=== PATIENT | female | born 1935 | race Caucasian/White ===

== ENCOUNTER 2018-03-25 03:48 | Inpatient (IN) | payer OTHER ==
[~2018-03-25] VITALS: Ht 160 cm; Wt 68.8 kg
[~2018-03-25 03:48] MED LIST: ASPI-435 PO; ATOR-24 PO; CLOP1TAB15 PO; GLC500 PO; KCLP20 PO; METO25TA3 PO; NITR0.4S UT; PANT40TA PO; TELM5TAB PO
--- NOTE | 2018-03-25 04:11 | EMERGENCY ROOM VISIT NOTE ---
History Report prepared by Jonas: Blake Myers Under the Supervision of: Dr. Bhumika Miner D.O. First contact with patient: 03:53 Chief Complaint: CARDIAC ASSESSMENT Stated Complaint: HEARTBURN History of Present Illness The patient is an 82 year old female who presents to the Emergency Room with complaints of now-resolved heartburn that the patient experienced all day yesterday. The patient states that she was experiencing heartburn yesterday and took "multiple Tums." The Tums did not relieve her symptoms. The patient then developed "tingling" and "numbness" in the left arm as well as a "heaviness" in her chest. She notes that her symptoms are now resolved and she has no burning at this time, and adds that the symptoms were improved with Nitroglycerin from EMS. The patient has a significant cardiac history and has had two prior myocardial infarctions. These episodes presented with left sided jaw pain. The patient denies any jaw pain recently. She has had several stents placed. The patient has also gone into cardiogenic shock and has had a failed coronary artery bypass surgery. She is on Plavix and Baby Aspirin as anticoagulation therapy. The patient brought documentation of a recent Nuclear Stress Test from August of this year. The report shows that the patient's EF was 55-60%. There was mild left atrial enlargement and mild regurgitation of the mitral valve. There were no wall motion abnormalities. Source of History: patient Onset: Yesterday Position: chest Quality: burning Timing: resolved Modifying Factors (Relieving): other (Nitro) Associated Symptoms: + numbness (Left Arm) Review of Systems See HPI for pertinent positives & negatives. A total of 10 systems reviewed and were otherwise negative. 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/P CABG x 3 Family History No pertinent family history Social History Smoking Status: Never Smoker Drug Use: none Marital Status: Housing Status: lives with significant other Occupation Status: retired Current/Historical Medications Scheduled Aspirin (Aspirin 81), 81 MG PO DAILY Atorvastatin (Lipitor), 80 MG PO DAILY Calcium Carbonate-Vitamin D (Calcium + D), 1 TAB PO DAILY Clobetasol Propionate (Clobetasol Propionate), 1 APPLN TOP DAILY Clopidogrel (Plavix), 75 MG PO DAILY Estradiol Vaginal (Estrace), 1 APPLN TOP 2XWK Isosorbide Mononitrate Ext Rel (Imdur Ext Rel), 30 MG PO QAM Levothyroxine Sodium (Levothyroxine Sodium), 50 MCG PO QAM Metformin HCl (Metformin HCl), 500 MG PO HS Pantoprazole (Protonix), 40 MG PO DAILY Potassium Chloride (K-Tab), 20 MEQ PO DAILY Telmisartan (Micardis), 20 MG PO DAILY Scheduled PRN Nitroglycerin (Nitrostat), 0.4 MG UT UD PRN for Chest Pain Allergies Coded Allergies: No Known Allergies (Unverified , 03/25/18) Physical Exam Vital Signs Date Time Temp Pulse Resp B/P (MAP) Pulse Ox O2 Delivery O2 Flow Rate FiO2 03/25/18 06:06 58 18 141/71 96 Room Air 03/25/18 05:31 57 18 149/71 96 Room Air 03/25/18 04:42 59 18 148/78 97 Room Air 03/25/18 03:55 97 Room Air 03/25/18 03:55 36.8 70 18 164/88 97 Room Air 03/25/18 03:55 67 03/25/18 03:55 97 Physical Exam HEENT: Head - normocephalic and atraumatic Pupils are equal, round, and reactive to light. Extraocular eye muscles are intact, and sclera are anicteric. Nose - moist nasal mucosa without discharge. Mouth - moist buccal mucosa. Oropharynx is nonerythematous and there is no tonsillar exudate or edema noted. Neck: Supple; no JVD, nuchal rigidity, cervical lymphadenopathy. Heart: Regular rate and rhythm. There is a normal S1 and S2 with no murmurs, clicks, or gallops appreciated. Lungs: Clear to auscultation bilaterally with no wheezes, rales, or rhonchi. Abdomen: Soft, completely nontender, nondistended, with good bowel sounds. There are no palpable pulsatile masses or hepatosplenomegaly. There is no guarding, rigidity, or rebound noted. Extremities: No evidence of cyanosis, clubbing, or edema. There are easily palpable peripheral pulses. Skin: warm and dry with good turgor and no rashes. Medical Decision & Procedures ER Provider Diagnostic Interpretation: Radiology results as stated below per my review: CHEST X-RAY: Cardiomegaly present. Sternotomy wires in place, no pleural effusion. Laboratory Results 03/25/18 03:45 Red Blood Count 4.03, Mean Corpuscular Volume 91.6, Mean Corpuscular Hemoglobin 30.0, Mean Corpuscular Hemoglobin Concent 32.8, Mean Platelet Volume 9.6, Neutrophils (%) (Auto) 63.1, Lymphocytes (%) (Auto) 22.6, Monocytes (%) (Auto) 11.0, Eosinophils (%) (Auto) 2.5, Basophils (%) (Auto) 0.7, Neutrophils # (Auto ) 5.52, Lymphocytes # (Auto) 1.98, Monocytes # (Auto) 0.96, Eosinophils # (Auto ) 0.22, Basophils # (Auto) 0.06 03/25/18 03:45 Test 03/25/18 03:45 White Blood Count 8.75 K/uL (4.8-10.8) Red Blood Count 4.03 M/uL (4.2-5.4) Hemoglobin 12.1 g/dL (12.0-16.0) Hematocrit 36.9 % (37-47) Mean Corpuscular Volume 91.6 fL (80-100) Mean Corpuscular Hemoglobin 30.0 pg (25-34) Mean Corpuscular Hemoglobin Concent 32.8 g/dl (32-36) Platelet Count 303 K/uL (130-400) Mean Platelet Volume 9.6 fL (7.4-10.4) Neutrophils (%) (Auto) 63.1 % Lymphocytes (%) (Auto) 22.6 % Monocytes (%) (Auto) 11.0 % Eosinophils (%) (Auto) 2.5 % Basophils (%) (Auto) 0.7 % Neutrophils # (Auto) 5.52 K/uL (1.4-6.5) Lymphocytes # (Auto) 1.98 K/uL (1.2-3.4) Monocytes # (Auto) 0.96 K/uL (0.11-0.59) Eosinophils # (Auto) 0.22 K/uL (0-0.5) Basophils # (Auto) 0.06 K/uL (0-0.2) RDW Standard Deviation 45.7 fL (36.4-46.3) RDW Coefficient of Variation 13.6 % (11.5-14.5) Immature Granulocyte % (Auto) 0.1 % Immature Granulocyte # (Auto) 0.01 K/uL (0.00-0.02) Anion Gap 10.0 mmol/L (3-11) Est Creatinine Clear Calc Drug Dose 38.8 ml/min Estimated GFR () 54.9 Estimated GFR (Non- 47.4 BUN/Creatinine Ratio 26.4 (10-20) Calcium Level 9.4 mg/dl (8.5-10.1) Total Bilirubin 0.2 mg/dl (0.2-1) Direct Bilirubin < 0.1 mg/dl (0-0.2) Aspartate Amino Transf (AST/SGOT) 26 U/L (15-37) Alanine Aminotransferase (ALT/SGPT) 28 U/L (12-78) Alkaline Phosphatase 78 U/L (45-117) Troponin I < 0.015 ng/ml (0-0.045) Total Protein 7.4 gm/dl (6.4-8.2) Albumin 3.7 gm/dl (3.4-5.0) Laboratory results per my review. Medications Administered Medications (Trade) Dose Ordered Sig/Mukul Route Start Time Stop Time Status Last Admin Dose Admin Nitroglycerin (Nitroglycerin 2% Oint) 1 inch NOW ONCE EXT 03/25/18 04:45 03/25/18 04:46 DC 03/25/18 04:48 1 INCH Procedure Medications Ordered: Nitroglycerin. ECG Per My Interpretation Indication: chest pain Rate (beats per minute): 68 Rhythm: normal sinus Findings: LBBB, T-wave inversion (V6, I, AvL. ), no acute ischemic change, no ectopy Comparison ECG Date: 03/2014 Change: no significant change Change: PREHOSPITAL EKG: Significant ST-segment depression in inferior and lateral leads. These findings are resolved at this time. REPEAT EKG: Repeat EKG due to increased chest pain shows; Sinus Matteo at 59. LBBB, no acute ischemic changes, no recurrent St-depression in the inferior leads. ED Course 0356: Past medical records reviewed. The patient was evaluated in room B11B. A complete history and physical exam was performed. A 12-lead EKG was obtained as described above. Labs are drawn as above. 0440: The patient had a return of her chest pain at this time. I will order nitroglycerin paste 0445: Ordered Nitroglycerin 1 inch EXT. 0451: Dr. Enriqueta DOUGHERTY Hospitalist was made aware of the case. 0512: The patient had a worsening of her chest pain. Repeat EKG was obtained. Medical Decision The patient is an 82 year old female who presents to the Emergency Department with chest burning and left arm numbness. Differential diagnosis includes unstable angina, STEMI, acute coronary syndrome , aortic dissection. Laboratory results were reviewed and show; no leukocytosis, stable hemoglobin and hematocrit, BUN of 29, creatinine of 1.1, glucose of 103. Normal LFTs, negative troponin. This is an 82-year-old female patient with an extensive cardiac history presents to the emergency department with a heartburn throughout the day yesterday that now is associated with some left arm symptoms. Upon EMS arrival , she had a 12-lead EKG at the house which revealed significant ST segment depression in the inferior leads. They administered nitroglycerin and her chest pain resolved. Upon arrival here in the emergency department, the ST segment depressions were resolved. While in the emergency department, the patient's chest discomfort returned. EKG was repeated but there was no return of the findings in the inferior leads. Nitroglycerin paste was placed and I discussed the case with the [facility] Hospitalist. The patient remained hemodynamically stable Medication Reconcilliation Current Medication List: was personally reviewed by me Blood Pressure Screening Patient's blood pressure: Elevated blood pressure Referred to hospitalist. Consults Time Called: 450 Consulting Physician: Dr. Enriqueta DOUGHERTY Hospitalist Dr. Enriqueta DOUGHERTY Hospitalist was made aware of the case. Impression Primary Impression: Unstable angina Scribe Attestation The scribe's documentation has been prepared under my direction and personally reviewed by me in its entirety. I confirm that the note above accurately reflects all work, treatment, procedures, and medical decision making performed by me. Departure Information Dispostion Being Evaluated By Hospitalist Referrals No Doctor, Assigned (PCP) Patient Instructions My [facility]
[2018-03-25 04:16] LABS: BASO % 0.7 %; BASO ABS # 0.06 K/uL (0-0.2); EOS % 2.5 %; EOS ABS # 0.22 K/uL (0-0.5); HEMATOCRIT 36.9 % (37-47); HEMOGLOBIN 12.1 g/dL (12.0-16.0); IG# 0.01 K/uL (0.00-0.02); LYMPH % 22.6 %; LYMPH ABS # 1.98 K/uL (1.2-3.4); MEAN CELL VOLUME 91.6 fL (80-100); MEAN CORPUSCULAR HGB CONC 32.8 g/dl (32-36); MEAN PLATELET VOLUME 9.6 fL (7.4-10.4); MONO ABS # 0.96 K/uL (0.11-0.59); NEUT % 63.1 %; NEUT ABS # 5.52 K/uL (1.4-6.5); PLATELET COUNT 303 K/uL (130-400); RED CELL DISTRIBUTION WIDTH CV 13.6 % (11.5-14.5); RED CELL DISTRIBUTION WIDTH SD 45.7 fL (36.4-46.3); WHITE BLOOD COUNT 8.75 K/uL (4.8-10.8)
[2018-03-25] MEDS ORDERED: ISOS30TA35 PO (04:28)
[2018-03-25] MEDS ORDERED: GLC500 PO (04:28)
[2018-03-25] MEDS ORDERED: LEVO50TA6 PO (04:28)
[2018-03-25] MEDS ORDERED: ATOR-26 PO (04:28)
[2018-03-25] MEDS ORDERED: CLBCR60 TOP (04:28)
[2018-03-25] MEDS ORDERED: NTRGSL/4 UT (04:28)
[2018-03-25] MEDS ORDERED: CALC600T9 PO (04:30)
[2018-03-25] MEDS ORDERED: TELM5TAB2 PO (04:30)
[2018-03-25] MEDS ORDERED: POTA1TAB97 PO (04:30)
[2018-03-25] MEDS ORDERED: ESTCR TOP (04:32)
[2018-03-25 04:33] LABS: ALBUMIN 3.7 gm/dl (3.4-5.0); ALKALINE PHOSPHATASE 78 U/L (45-117); ALT/SGPT 28 U/L (12-78); AST/SGOT 26 U/L (15-37); BLOOD UREA NITROGEN 29 mg/dl (7-18); CALCIUM 9.4 mg/dl (8.5-10.1); CARBON DIOXIDE 27 mmol/L (21-32); GLUCOSE 103 mg/dl (70-99); POTASSIUM 4.6 mmol/L (3.5-5.1); SODIUM 141 mmol/L (136-145); TOTAL PROTEIN 7.4 gm/dl (6.4-8.2)
[2018-03-25] MEDS ORDERED: NITROGLYCERIN 2% OINTMENT 30GM TUBE EXT ONE (04:45)
[2018-03-25] MEDS ORDERED: POLYETHYLENE (MIRALAX) 17 GM PACK PO PRN (05:15)
[2018-03-25] MEDS ORDERED: ACETAMINOPHEN 325 MG TAB PO PRN (05:15)
[2018-03-25] MEDS ORDERED: NITROGLYCERIN 0.4 MG SL PER TAB CHARGE SL PRN (05:15)
[2018-03-25] MEDS ORDERED: MoRPHine SULFATE 2 MG/ML CARP IV PRN (05:15)
[2018-03-25] MEDS ORDERED: MAGNESIUM HYDROXIDE SUSP 30 ML UDC PO PRN (05:15)
[2018-03-25] MEDS ORDERED: ALUMINUM/MAGNESIUM/SIMETH (MAALOX MAX) 30 ML UDC PO PRN (05:15)
[2018-03-25] MEDS ORDERED: ONDANSETRON INJ 2 MG/ML 2 ML VIAL IV PRN (05:15)
[2018-03-25] MEDS ORDERED: NITROGLYCERIN 0.4 MG SL PER TAB CHARGE UT PRN (05:15)
--- NOTE | 2018-03-25 05:37 | History and Physical ---
History & Physical Date & Time of Service: Mar 25, 2018 at 05:19 Chief Complaint: Heartburn Primary Care Physician: No Doctor, Assigned History of Present Illness Source: patient, hospital records Patient is a 82 year old female with a PMH of DM, HLD, HTN and 2 TX's w/ CABG that presented to [facility] with chest tightness She notes her symptoms have been subtle yet intermittently present during the last couple weeks. She notes that have lasted for a short period of time when at rest. She notes that yesterday morning she started having worsening chest pressure/discomfort. She took nitroglycerin and tums but did not gain any relief of her symptoms. Then this morning at 1am she had worsening of her chest tightness with numbness and tingling down her left arm. This prompted her to come the ED. She has had two heart attacks in the past and she notes that this feels similar to those events. The patient brought documentation of a recent Nuclear Stress Test from August of this year. The report shows that the patient's EF was 55-60%. There was mild left atrial enlargement and mild regurgitation of the mitral valve. There were no wall motion abnormalities. She denies any shortness of breath, palpitations, leg swelling, cough, fevers, chills, abdominal pain, nausea, or vomiting She has had 5 stents placed in the past, she has had cardiac bypass surgery, and has had two heart attacks. Her last TX was 4 years ago. She notes she was in cardiogenic shock. Her heart doctor is Dr. 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 She notes that she lives in [place] during the winter and in [place] during the summer. She says that if things were to worsen then she would not want to be resuscitated. Past Medical/Surgical History Medical Problems: (1) Acute TX (2) Acute TX (3) Acute TX (4) Acute TX (5) Bradycardia (6) CAD (coronary artery disease) (7) Cardiogenic shock (8) Chest pain (9) Chest pain (10) Elevated troponin (11) Elevated troponin (12) GERD (gastroesophageal reflux disease) (13) Hypotension (14) TX (myocardial infarction) (15) Pulmonary embolism (16) STEMI (ST elevation myocardial infarction) Surgical Problems: (1) H/O heart artery stent (2) S/P CABG x 3 Family History No pertinent family history Mother, Father and Brothers all with significant cardiac history of TX's and bypass Social History Smoking Status: Never Smoker Smokeless Tobacco Use: No Alcohol Use: occasionally Drug Use: none Marital Status: Housing status: lives with significant other Occupational Status: retired Immunizations History of Influenza Vaccine: Unknown History of Tetanus Vaccine?: Unknown History of Pneumococcal: Unknown History of Hepatitis B Vaccine: Unknown Allergies Coded Allergies: No Known Allergies (Unverified , 03/25/18) Home Medications Scheduled Aspirin (Aspirin 81), 81 MG PO DAILY Atorvastatin (Lipitor), 80 MG PO DAILY Calcium Carbonate-Vitamin D (Calcium + D), 1 TAB PO DAILY Clobetasol Propionate (Clobetasol Propionate), 1 APPLN TOP DAILY Clopidogrel (Plavix), 75 MG PO DAILY Estradiol Vaginal (Estrace), 1 APPLN TOP 2XWK Isosorbide Mononitrate Ext Rel (Imdur Ext Rel), 30 MG PO QAM Levothyroxine Sodium (Levothyroxine Sodium), 50 MCG PO QAM Metformin HCl (Metformin HCl), 500 MG PO HS Pantoprazole (Protonix), 40 MG PO DAILY Potassium Chloride (K-Tab), 20 MEQ PO DAILY Telmisartan (Micardis), 20 MG PO DAILY Scheduled PRN Nitroglycerin (Nitrostat), 0.4 MG UT UD PRN for Chest Pain Review of Systems 10 systems reviewed and negative except as noted in the HPI Physical Exam Vital Signs Date Time Temp Pulse Resp B/P (MAP) Pulse Ox O2 Delivery O2 Flow Rate FiO2 03/25/18 04:42 59 18 148/78 97 Room Air 03/25/18 03:55 97 Room Air 03/25/18 03:55 36.8 70 18 164/88 97 Room Air 03/25/18 03:55 67 03/25/18 03:55 97 General Appearance: WD/WN, no apparent distress Head: normocephalic, atraumatic Eyes: PERRL, EOMI ENT: hearing grossly normal, pharynx normal Neck: supple, no JVD, no carotid bruits, trachea midline Respiratory/Chest: lungs clear, normal breath sounds, no accessory muscle use Cardiovascular: regular rate, rhythm, no murmur, normal peripheral pulses Abdomen/GI: normal bowel sounds, non tender, soft Extremities/Musculoskelatal: normal inspection, no calf tenderness, no pedal edema, non-tender Neurologic/Psych: coal 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 tested, no motor/sensory deficits, alert, normal mood/affect, oriented x 3 Skin: normal color, warm/dry, no rash Diagnostics Laboratory Results Results Past 24 Hours Test 03/25/18 03:45 Range/Units White Blood Count 8.75 4.8-10.8 K/uL Red Blood Count 4.03 4.2-5.4 M/uL Hemoglobin 12.1 12.0-16.0 g/dL Hematocrit 36.9 37-47 % Mean Corpuscular Volume 91.6 80-100 fL Mean Corpuscular Hemoglobin 30.0 25-34 pg Mean Corpuscular Hemoglobin Concent 32.8 32-36 g/dl Platelet Count 303 130-400 K/uL Mean Platelet Volume 9.6 7.4-10.4 fL Neutrophils (%) (Auto) 63.1 % Lymphocytes (%) (Auto) 22.6 % Monocytes (%) (Auto) 11.0 % Eosinophils (%) (Auto) 2.5 % Basophils (%) (Auto) 0.7 % Neutrophils # (Auto) 5.52 1.4-6.5 K/uL Lymphocytes # (Auto) 1.98 1.2-3.4 K/uL Monocytes # (Auto) 0.96 0.11-0.59 K/uL Eosinophils # (Auto) 0.22 0-0.5 K/uL Basophils # (Auto) 0.06 0-0.2 K/uL RDW Standard Deviation 45.7 36.4-46.3 fL RDW Coefficient of Variation 13.6 11.5-14.5 % Immature Granulocyte % (Auto) 0.1 % Immature Granulocyte # (Auto) 0.01 0.00-0.02 K/uL Sodium Level 141 136-145 mmol/L Potassium Level 4.6 3.5-5.1 mmol/L Chloride Level 104 98-107 mmol/L Carbon Dioxide Level 27 21-32 mmol/L Anion Gap 10.0 3-11 mmol/L Blood Urea Nitrogen 29 7-18 mg/dl Creatinine 1.10 0.60-1.20 mg/dl Est Creatinine Clear Calc Drug Dose 38.8 ml/min Estimated GFR () 54.9 Estimated GFR (Non- 47.4 BUN/Creatinine Ratio 26.4 10-20 Random Glucose 103 70-99 mg/dl Calcium Level 9.4 8.5-10.1 mg/dl Total Bilirubin 0.2 0.2-1 mg/dl Direct Bilirubin < 0.1 0-0.2 mg/dl Aspartate Amino Transf (AST/SGOT) 26 15-37 U/L Alanine Aminotransferase (ALT/SGPT) 28 12-78 U/L Alkaline Phosphatase 78 45-117 U/L Troponin I < 0.015 0-0.045 ng/ml Total Protein 7.4 6.4-8.2 gm/dl Albumin 3.7 3.4-5.0 gm/dl No Infiltrate, No Mass, No Effusion EKG Indication: chest pain Rate (beats per minute): 68 Rhythm: normal sinus Findings: LBBB, T-wave inversion (V6, I, AvL. ), no acute ischemic change, no ectopy Comparison ECG Date: 03/2014 Change: no significant change Change: PREHOSPITAL EKG: Significant ST-segment depression in inferior and lateral leads. These findings are resolved at this time. Impression Assessment and Plan Patient is a 82 year old female with a PMH of DM, HLD, HTN, Hypothyroidism, GERD , 2 TX's w/ triple bypass, CABG and 5 stents that presented to [facility] with chest tightness Unstable angina - trend troponins - order echo - EKG w/ worsening chest pain - continue aspirin, plavix, statin and imdur - nitro prn w/ chest pain - 2mg of morphine q30 minutes w/ pain - consult cardiology HTN - continue telmisartan HLD - continue statin Diabetes - check HbA1c - hold metformin - ISS Hypothyroidism - continue levothyroxine GERD - continue protonix DVT prophylaxis - lovenox Dispo - lives w/ - able to do ADL's DNR Attending Addendum: I have seen and examined this patient, have supervised the medical doctor md/medical director's activities, and agree with the H&P as noted. Unstable Angina/HTN-- Admit to telemetry for serial cardiac enzymes, rhythm monitoring, serial EKG's, and a complete ECHO. Continue aspirin, plavix, telmisartan and IMDUR. MSO4 2mg IV q2h prn breakthrough pain. Consult cardiology. Hyperlipidemia-- Continue statin. Check a FLP and HbA1c. Remainder of notations and orders as above. Advanced Directives Existing Advance Directive: No Existing Living Will: No Existing Power of Quick Technician: No Resuscitation Status VTE Prophylaxis Will order VTE Prophylaxis: Yes Social Service Consult None Apply
[2018-03-25 06:35] LABS: HEMOGLOBIN A1C 6.6 % (4.5-5.6)
[2018-03-25] MEDS ORDERED: GLUCAGON FOR INJ 1 MG VIAL IM PRN (07:00)
[2018-03-25] MEDS ORDERED: CARBOHYDRATES FOR HYPOGLYCEMIA PO PRN (07:00)
[2018-03-25] MEDS ORDERED: GLUCOSE 40% GEL 15 GM TUBE PO PRN (07:00)
[2018-03-25] MEDS ORDERED: DEXTROSE 50% 50 ML SYR IV PRN (07:00)
[2018-03-25] MEDS ORDERED: GLUCOSE 10 TABS/TUBE PO PRN (07:00)
[2018-03-25] MEDS: INSULIN ASPART 100 UNITS/ML 3 ML PEN SC SCH ×4 (07:00→20:52)
--- NOTE | 2018-03-25 07:18 | DIAGNOSTIC IMAGING REPORT ---
CHEST ONE VIEW PORTABLE HISTORY: left chest pain COMPARISON: Chest 04/01/2014. FINDINGS: There are post sternotomy changes. The heart remains mildly enlarged. The lungs are clear. No pleural effusions. No pneumothorax. IMPRESSION: Stable mild cardiomegaly. No acute process within the chest. Electronically signed by: Ancelmo Michel M.D. 03/25/2018 7:17 AM Dictated Date/Time: 03/25/2018 7:15 AM
[2018-03-25 07:54] VITALS: BP 170/76; PULSE 63; TEMP 36.8; O2SAT 98; Ht 160 cm; Wt 68.8 kg
[2018-03-25 07:56] LABS: INR 0.9 (0.9-1.1); PTT PATIENT 24.7 SECONDS (21.0-31.0)
[2018-03-25 09:00] VITALS: O2SAT 98
[2018-03-25] MEDS: LEVOTHYROXINE 50 MCG TAB PO SCH (09:10)
[2018-03-25] MEDS: POTASSIUM CHLORIDE 20 MEQ TABCR PO SCH (09:10)
[2018-03-25] MEDS: ATORVASTATIN 40 MG TAB PO SCH (09:10)
[2018-03-25] MEDS: TELMISARTAN 20 MG TAB PO SCH (09:11)
[2018-03-25] MEDS: ASPIRIN 81 MG ECTAB PO SCH (09:11)
[2018-03-25] MEDS: PANTOprazole SOD 40 MG TAB PO SCH (09:11)
[2018-03-25] MEDS: ISOSORBIDE MONONITRATE 30 MG TABCR PO SCH (09:11)
[2018-03-25] MEDS: ENOXAPARIN 40 MG/0.4 ML SYR SC SCH (09:11)
[2018-03-25] MEDS: CLOPIDOGREL BISULFATE 75 MG TAB PO SCH (09:11)
--- NOTE | 2018-03-25 09:26 | ECHOCARDIOGRAM REPORT ---
*NOTICE TO RECEIVING CONSTITUTION PARTY AGENCY This information is strictly Confidential and protected under [place] law. [place] law prohibits you from making any further disclosure of this information unless further disclosure is expressly permitted by the written consent of the person to whom it pertains or is authorized by law. A general authorization for the release of medical or other information is not sufficient for this purpose. Hospital accepts no responsibility if the information is made available to any other person, INCLUDING THE PATIENT. Interpretation Summary * Name: MELISSA CHEW Study Date: 03/25/2018 07:01 AM BP: 149/71 mmHg * Patient Location: C.2T\S\S241\S\1 HR: 69 * : 1935 (M/d/yyyy) Gender: Female Height: 63 in * Age: 82 yrs Ethnicity: CA Weight: 159 lb * Ordering Physician: Seamus Hernandez * Referring Physician: Self, Referred * Performed By: Jose Rafael Duran RCS * * Reason For Study: Chest Pain * BSA: 1.8 m2 * -- Conclusions -- * The left ventricle is mildly dilated. * Left ventricular systolic function is moderate to severely reduced. * Restrictive diastolic filling * There are regional wall motion abnormalities as specified. * There is moderate mitral regurgitation. * Right ventricular systolic pressure is elevated at 30-40mmHg. * Compared to a study from 2014, there is no significant change Procedure Details * A complete two-dimensional transthoracic echocardiogram was performed (2D, M-mode, Doppler and color flow Doppler). * A contrast injection of Definity was performed to improve assessment of LV function. * Contrast was injected into an intravenous site in the left arm. * One vial of Definity ultrasound contrast was diluted in normal saline to a total volume of 10 ml. A total of '2' ml of solution was administered during imaging. * Lot # [id number] of Definity utilized for procedure. * Expiration date . * The attending nurse who injected the contrast agent was Shade Pineda RN. Left Ventricle * The left ventricle is mildly dilated. * There is normal left ventricular wall thickness. * Ejection Fraction = 30-35%. * Left ventricular systolic function is moderate to severely reduced. * Restrictive diastolic filling * There are regional wall motion abnormalities as specified. * Distal septum is dyskinetic. basal anterior and lateral gomez are mildly hypokinetic. Right Ventricle * The right ventricle is grossly normal size. * The right ventricular systolic function is normal. Atria * The left atrial size is normal. * Right atrial size is normal. Mitral Valve * The mitral valve is grossly normal. * There is moderate mitral regurgitation. Tricuspid Valve * The tricuspid valve is not well visualized, but is grossly normal. * There is trace tricuspid regurgitation. * Right ventricular systolic pressure is elevated at 30-40mmHg. Aortic Valve * The aortic valve is normal in structure and function. * No hemodynamically significant valvular aortic stenosis. * There is no significant aortic regurgitation. Pulmonic Valve * The pulmonic valve is not well seen, but is grossly normal. * Trace pulmonic valvular regurgitation. Great Vessels * The aortic root is normal size. Pericardium/Pleural * There is no pericardial effusion. Great Vessels * Normal inferior vena cava diameter and respiratory variation suggests normal central venous pressure. MMode 2D Measurements and Calculations IVSd 0.98 cm IVSs 1.2 cm LVIDd 5.4 cm LVIDs 4.3 cm LVPWd 0.97 cm LVPWs 1.2 cm IVS/LVPW 1.0 FS 20.6 % EDV(Teich) 142.1 ml ESV(Teich) 82.9 ml EF(Teich) 41.7 % EDV(cubed) 158.6 ml ESV(cubed) 79.3 ml EF(cubed) 50.0 % % IVS thick 19.0 % % LVPW thick 19.7 % LV mass(C)d 201.1 grams LV mass(C)dI 114.7 grams/m\S\2 LV mass(C)s 176.7 grams LV mass(C)sI 100.8 grams/m\S\2 SV(Teich) 59.2 ml SI(Teich) 33.7 ml/m\S\2 SV(cubed) 79.3 ml SI(cubed) 45.2 ml/m\S\2 Ao root diam 2.9 cm Ao root area 6.7 cm\S\2 ACS 1.3 cm LA dimension 3.9 cm asc Aorta Diam 3.1 cm LA/Ao 1.3 LVAd ap4 32.4 cm\S\2 LVLd ap4 7.9 cm EDV(MOD-sp4) 109.0 ml LVAs ap4 25.3 cm\S\2 LVLs ap4 6.9 cm ESV(MOD-sp4) 76.4 ml EF(MOD-sp4) 29.9 % LVAd ap2 31.7 cm\S\2 LVLd ap2 7.2 cm EDV(MOD-sp2) 115.0 ml LVAs ap2 24.8 cm\S\2 LVLs ap2 6.9 cm ESV(MOD-sp2) 73.3 ml EF(MOD-sp2) 36.3 % SV(MOD-sp4) 32.6 ml SI(MOD-sp4) 18.6 ml/m\S\2 SV(MOD-sp2) 41.7 ml SI(MOD-sp2) 23.8 ml/m\S\2 Doppler Measurements and Calculations MV E max jessy 117.0 cm/sec MV A max jessy 67.7 cm/sec MV E/A 1.7 MV P1/2t max jessy 122.5 cm/sec MV P1/2t 140.3 msec MVA(P1/2t) 1.6 cm\S\2 MV dec slope 255.7 cm/sec\S\2 MV dec time 0.17 sec Ao V2 max 167.6 cm/sec Ao max PG 11.2 mmHg Ao max PG (full) 7.7 mmHg LV V1 max PG 3.5 mmHg LV V1 max 94.1 cm/sec PA V2 max 118.1 cm/sec PA max PG 5.6 mmHg PI max jessy 205.6 cm/sec PI max PG 17.0 mmHg PI dec slope 202.5 cm/sec\S\2 PI P1/2t 297.4 msec TR max jessy 275.3 cm/sec
--- NOTE | 2018-03-25 10:06 | Cardiology Consultation ---
Cardiology Consultation Date of Consultation: Mar 25, 2018. Requesting Physician: Robbi Reason for Consultation: Chest pain Pt evaluation today including: conversation w/ patient, physical exam, chart review, lab review, review of studies, review of inpatient medication list, conversation w/ attending History of Present Illness The patient is an 82-year-old woman with a history of coronary disease having previously undergone coronary bypass grafting as well as percutaneous intervention. Patient experienced the onset of chest discomfort yesterday morning. This is described by the patient is a burning sensation in the precordium. There is some paresthesias and tingling involving the left arm as well. She did not have jaw or back pain. The symptoms themselves did not respond to nitroglycerin or antacids. The waxed and waned in severity but were present for the majority of the day. As the symptoms progressed into the evening the patient eventually sought medical attention at [facility]. She cannot recall any particular intervention which relieved her symptoms. It seems that her symptoms gradually resolved on their own. Currently she is pain-free. She claims to be feeling well this morning. She denied any associated breathing difficulty. She has not had dizziness or lightheadedness. She has not report any sense of palpitation or rapid heartbeats recently. The patient has been active over the summer. She routinely performs exercise involving a stationary bike and a treadmill. She does not experience symptoms of chest discomfort or jaw pain with these activities. She also performs light weight training. She has been active outside and can walk on level ground without symptoms. She has noted some jaw pain in the past with at ascending hills. Jaw pain tends to be her anginal equivalent. Past Medical/Surgical History Coronary artery disease Coronary artery bypass grafting x3 2013 PCI to the obtuse marginal, 2016, 2014 and 2006 Ischemic cardiomyopathy with ejection fraction ranging between 30 and 45 percent Gastroesophageal reflux Hyperlipidemia Hypertension Diabetes mellitus type 2 Past surgical history: Coronary bypass grafting, 2013 Wu to LAD, left radial to OM and PDA Left atrial appendage ligation Family History No pertinent family history Noncontributory given her age and comorbidities Social History Smoking Status: Never Smoker History of Alcohol Use: Yes (Rarely) Spends the gao in [place] Review of Systems Per HPI. She has not had any constitutional symptoms recently such as fevers or chills. No lower extremity edema. Normal bowel or bladder habits. No significant abdominal discomfort. All Other Systems: Reviewed and Negative Allergies Coded Allergies: No Known Allergies (Unverified , 03/25/18) Medications Current Inpatient Medications Medications (Trade) Dose Ordered Sig/Mukul Route Start Time Stop Time Status Last Admin Dose Admin Enoxaparin Sodium (Lovenox Inj) 40 mg Q24H SC 03/25/18 09:00 04/24/18 08:59 03/25/18 09:11 40 MG Acetaminophen (Tylenol Tab) 650 mg Q4H PRN PO 03/25/18 05:15 04/24/18 05:14 Al Hydrox/Mg Hydrox/Simethicone (Maalox Max Susp) 15 ml Q4H PRN PO 03/25/18 05:15 04/24/18 05:14 Magnesium Hydroxide (Milk Of Magnesia Susp) 30 ml Q12H PRN PO 03/25/18 05:15 04/24/18 05:14 Ondansetron HCl (Zofran Inj) 4 mg Q6H PRN IV 03/25/18 05:15 04/24/18 05:14 Nitroglycerin (Nitrostat Tab) 0.4 mg UD PRN SL 03/25/18 05:15 04/24/18 05:14 Morphine Sulfate (MoRPHine SULFATE INJ) 2 mg Q30M PRN IV 03/25/18 05:15 04/08/18 05:14 Polyethylene (Miralax Powder Packet) 17 gm DAILY PRN PO 03/25/18 05:15 04/24/18 05:14 Aspirin (Ecotrin Tab) 81 mg DAILY PO 03/25/18 09:00 04/24/18 08:59 03/25/18 09:11 81 MG Atorvastatin Calcium (Lipitor Tab) 80 mg DAILY PO 03/25/18 09:00 04/24/18 08:59 03/25/18 09:10 80 MG Clopidogrel Bisulfate (plAVix TAB) 75 mg DAILY PO 03/25/18 09:00 04/24/18 08:59 03/25/18 09:11 75 MG Isosorbide Mononitrate (Imdur Ext Rel Tab) 30 mg QAM PO 03/25/18 09:00 04/24/18 08:59 03/25/18 09:11 30 MG Levothyroxine Sodium (Synthroid Tab) 50 mcg DAILYBB PO 03/25/18 07:00 04/24/18 06:59 03/25/18 09:10 50 MCG Pantoprazole Sodium (Protonix Tab) 40 mg DAILY PO 03/25/18 09:00 04/24/18 08:59 03/25/18 09:11 40 MG Telmisartan (Micardis Tab) 20 mg DAILY PO 03/25/18 09:00 04/24/18 08:59 03/25/18 09:11 20 MG Potassium Chloride (Klor-Con Tab) 20 meq DAILY PO 03/25/18 09:00 04/24/18 08:59 03/25/18 09:10 20 MEQ Insulin Aspart (novoLOG ASPART) SLIDING SCALE G... ACHS SC 03/25/18 07:00 04/24/18 06:59 Glucose (Glucose 40% Gel) 15-30 GRAMS 15 GRAMS... UD PRN PO 03/25/18 07:00 04/24/18 06:59 Glucose (Glucose Chew Tab) 4-8 Tablets 4 Tabl... UD PRN PO 03/25/18 07:00 04/24/18 06:59 Dextrose (Dextrose 50% 50ML Syringe) 25-50ML 25ML FOR ... UD PRN IV 03/25/18 07:00 04/24/18 06:59 Glucagon (Glucagon Inj) 1 mg UD PRN IM 03/25/18 07:00 04/24/18 06:59 Carbohydrates (Carbohydrates For Hypoglycemia) 15-30 GRAMS 15 grams if BSG 54-69... UD PRN PO 03/25/18 07:00 04/24/18 06:59 Physical Exam Vital Signs Past 12 Hours Date Time Temp Pulse Resp B/P (MAP) Pulse Ox O2 Delivery O2 Flow Rate FiO2 03/25/18 07:54 36.8 63 17 170/76 98 Room Air 03/25/18 06:06 58 18 141/71 96 Room Air 03/25/18 05:31 57 18 149/71 96 Room Air 03/25/18 04:42 59 18 148/78 97 Room Air 03/25/18 03:55 97 Room Air 03/25/18 03:55 36.8 70 18 164/88 97 Room Air 03/25/18 03:55 67 03/25/18 03:55 97 She is alert and oriented x3. Mood affect appear normal. She answered all questions appropriately. HEENT: Sclerae are anicteric. Pupils are equal and reactive to light and accommodation. Extraocular movements were intact. Neuro: Cranial nerves intact Neck: Examination of the submandibular region did not reveal any significant lymphadenopathy. Carotids are palpable bilaterally and free of bruits on auscultation. There was no evidence of jugular venous distention. The thyroid was not enlarged. Lungs: Lungs are clear to auscultation bilaterally. There are no rales wheezes or rhonchi. She has normal respiratory effort without use of accessory muscles. There is normal pulmonary excursion. Chest: Well-healed sternotomy scar. Cardiac: The rhythm was regular. S1 and S2 were normal. There are no murmurs on examination. The PMI was not markedly displaced on palpation. Abdomen: The abdomen was soft and nontender. Extremities: Patient has a normal right radial pulse. Left radial pulse is absent. There is no evidence cyanosis or clubbing. There was no evidence of significant peripheral edema bilaterally. Skin: There are no rashes noted on examination today. Data Laboratory Results: Last 24 Hours Test 03/25/18 03:45 03/25/18 07:12 White Blood Count 8.75 K/uL Red Blood Count 4.03 M/uL Hemoglobin 12.1 g/dL Hematocrit 36.9 % Mean Corpuscular Volume 91.6 fL Mean Corpuscular Hemoglobin 30.0 pg Mean Corpuscular Hemoglobin Concent 32.8 g/dl Platelet Count 303 K/uL Mean Platelet Volume 9.6 fL Neutrophils (%) (Auto) 63.1 % Lymphocytes (%) (Auto) 22.6 % Monocytes (%) (Auto) 11.0 % Eosinophils (%) (Auto) 2.5 % Basophils (%) (Auto) 0.7 % Neutrophils # (Auto) 5.52 K/uL Lymphocytes # (Auto) 1.98 K/uL Monocytes # (Auto) 0.96 K/uL Eosinophils # (Auto) 0.22 K/uL Basophils # (Auto) 0.06 K/uL RDW Standard Deviation 45.7 fL RDW Coefficient of Variation 13.6 % Immature Granulocyte % (Auto) 0.1 % Immature Granulocyte # (Auto) 0.01 K/uL Sodium Level 141 mmol/L Potassium Level 4.6 mmol/L Chloride Level 104 mmol/L Carbon Dioxide Level 27 mmol/L Anion Gap 10.0 mmol/L Blood Urea Nitrogen 29 mg/dl Creatinine 1.10 mg/dl Est Creatinine Clear Calc Drug Dose 38.8 ml/min Estimated GFR () 54.9 Estimated GFR (Non- 47.4 BUN/Creatinine Ratio 26.4 Random Glucose 103 mg/dl Estimated Average Glucose 143 mg/dl Hemoglobin A1c 6.6 % Calcium Level 9.4 mg/dl Total Bilirubin 0.2 mg/dl Direct Bilirubin < 0.1 mg/dl Aspartate Amino Transf (AST/SGOT) 26 U/L Alanine Aminotransferase (ALT/SGPT) 28 U/L Alkaline Phosphatase 78 U/L Troponin I < 0.015 ng/ml Total Protein 7.4 gm/dl Albumin 3.7 gm/dl Prothrombin Time 9.4 SECONDS Prothromb Time International Ratio 0.9 Activated Partial Thromboplast Time 24.7 SECONDS Partial Thromboplastin Ratio 1.0 Imaging: Chest x-ray the time admission revealed mild cardiomegaly but no acute cardiopulmonary process. EKG: Normal sinus rhythm with left bundle branch block Telemetry reviewed: No arrhythmia Echocardiogram performed today reveals reduced LV systolic function with regional wall motion abnormalities. Ejection fraction estimated at 30- 35 percent. Moderate mitral regurgitation Assessment & Plan 1. Chest pain: Patient has an extensive coronary history and her symptoms are certainly concerning for unstable angina. However, she had an extended duration of symptoms without any elevation in her cardiac biomarkers. It is actually surprising that woman with her coronary history has normal biomarkers at all. This was suggest that her symptoms yesterday were not related to cardiac ischemia. For most patients some form of risk stratification would seem reasonable. However, she appears to be a poor candidate for any form of noninvasive testing given her EKG abnormalities in prior response to Lexiscan. I would think that the only reliable way to evaluate her coronary disease with repeat angiography. In the absence of elevated biomarkers or recurrent symptoms consistent with unstable angina, I do not think I would recommend a cardiac catheterization. 2. Ischemic cardiomyopathy: The patient does have significantly reduced LV systolic function. Her ejection fraction is low enough that she would be a candidate for an ICD as primary prevention against sudden cardiac . Depending on the remainder of her hospital course we could discuss this option. She is not on a beta-renetta due to history of significant bradycardia. She has been maintained on ARB. 3. Left bundle-branch block: Given her reduced LV systolic function she would be a candidate for cardiac for cardiac resynchronization therapy as well. 4. Coronary artery disease: Patient is on secondary prevention to include aspirin and atorvastatin. In the past she has had bradycardia associated with beta-blockers. 5. Mitral regurgitation: Moderate.
--- NOTE | 2018-03-25 11:34 | Discharge Summary ---
Discharge Summary Date of Service Mar 26, 2018. Discharge Summary Admission Date: Mar 25, 2018 at 05:16 Discharge Date: Mar 26, 2018 Discharge Disposition: Home Principal Diagnosis: ACS rule out Problems/Secondary Diagnoses: DM, HLD, HTN, Hypothyroidism, GERD, 2 CO's w/ triple bypass, CABG and 5 stents Immunizations: Have You Had Influenza Vaccine: Unknown History of Tetanus Vaccine?: Unknown History of Pneumococcal: Unknown History of Hepatitis B Vaccine: Unknown Procedures: EKG--NSR, Left bundle branch block, no new changes CHEST ONE VIEW PORTABLE HISTORY: left chest pain COMPARISON: Chest 04/01/2014. FINDINGS: There are post sternotomy changes. The heart remains mildly enlarged. The lungs are clear. No pleural effusions. No pneumothorax. IMPRESSION: Stable mild cardiomegaly. No acute process within the chest. Electronically signed by: Ancelmo Michel M.D. 03/25/2018 7:17 AM Dictated Date/Time: 03/25/2018 7:15 AM Consultations: Dr. Smith, Cardiology Discharge Exam Review of Systems: Constitutional: No fever, No chills, No sweats Respiratory: No cough, No sputum, No wheezing, No shortness of breath, No dyspnea on exertion Cardiovascular: No chest pain, No palpitations Abdomen: No pain, No nausea, No vomiting, No diarrhea, No constipation Genitourinary - Female: No dysuria, No urinary frequency Physical Exam: General Appearance: WD/WN, no apparent distress Neck: supple, no adenopathy, trachea midline Respiratory/Chest: chest non-tender, lungs clear, normal breath sounds, no respiratory distress, no accessory muscle use Cardiovascular: regular rate, rhythm, no edema, no murmur Abdomen / GI: normal bowel sounds, non tender, soft Extremities: no calf tenderness, no pedal edema Neurologic/Psychiatric: alert, normal mood/affect, normal reflexes, oriented x 3 Skin: normal color, warm/dry, no rash Hospital Course Total Time Spent: Greater than 30 minutes This includes examination of the patient, discharge planning, medication reconciliation, and communication with other providers. Discharge Instructions Please refer to the electronic Patient Visit Report (Discharge Instructions) for additional information.
[2018-03-25 12:11] VITALS: BP 113/67; PULSE 60; TEMP 37; O2SAT 96
[2018-03-25 15:10] VITALS: BP 129/65; PULSE 58; TEMP 36.9; O2SAT 96
--- NOTE | 2018-03-25 16:05 | Family Medicine Progress Note ---
Progress Note Date of Service Mar 25, 2018. Subjective Pt evaluation today including: conversation w/ patient, physical exam, chart review, lab review, review of studies Voiding: no voiding problems Patient still describes pain this morning but less intense. Describes the pain as a chest tightness. She is able to point to the pain. She describes that the pain has been intermittent for the past couple days, but became severe last night. It is not worsened with activity. Constitutional: No fever, No chills, No sweats Respiratory: No cough, No sputum, No wheezing, No shortness of breath Cardiovascular: + chest pain, No palpitations Abdomen: No pain, No nausea, No vomiting, No diarrhea, No constipation Female : No dysuria, No urinary frequency Medications Current Inpatient Medications Medications (Trade) Dose Ordered Sig/Mukul Route Start Time Stop Time Status Last Admin Dose Admin Enoxaparin Sodium (Lovenox Inj) 40 mg Q24H SC 03/25/18 09:00 04/24/18 08:59 03/25/18 09:11 40 MG Acetaminophen (Tylenol Tab) 650 mg Q4H PRN PO 03/25/18 05:15 04/24/18 05:14 Al Hydrox/Mg Hydrox/Simethicone (Maalox Max Susp) 15 ml Q4H PRN PO 03/25/18 05:15 04/24/18 05:14 Magnesium Hydroxide (Milk Of Magnesia Susp) 30 ml Q12H PRN PO 03/25/18 05:15 04/24/18 05:14 Ondansetron HCl (Zofran Inj) 4 mg Q6H PRN IV 03/25/18 05:15 04/24/18 05:14 Nitroglycerin (Nitrostat Tab) 0.4 mg UD PRN SL 03/25/18 05:15 04/24/18 05:14 Morphine Sulfate (MoRPHine SULFATE INJ) 2 mg Q30M PRN IV 03/25/18 05:15 04/08/18 05:14 Polyethylene (Miralax Powder Packet) 17 gm DAILY PRN PO 03/25/18 05:15 04/24/18 05:14 Aspirin (Ecotrin Tab) 81 mg DAILY PO 03/25/18 09:00 04/24/18 08:59 03/25/18 09:11 81 MG Atorvastatin Calcium (Lipitor Tab) 80 mg DAILY PO 03/25/18 09:00 04/24/18 08:59 03/25/18 09:10 80 MG Clopidogrel Bisulfate (plAVix TAB) 75 mg DAILY PO 03/25/18 09:00 04/24/18 08:59 03/25/18 09:11 75 MG Isosorbide Mononitrate (Imdur Ext Rel Tab) 30 mg QAM PO 03/25/18 09:00 04/24/18 08:59 03/25/18 09:11 30 MG Levothyroxine Sodium (Synthroid Tab) 50 mcg DAILYBB PO 03/25/18 07:00 04/24/18 06:59 03/25/18 09:10 50 MCG Pantoprazole Sodium (Protonix Tab) 40 mg DAILY PO 03/25/18 09:00 04/24/18 08:59 03/25/18 09:11 40 MG Telmisartan (Micardis Tab) 20 mg DAILY PO 03/25/18 09:00 04/24/18 08:59 03/25/18 09:11 20 MG Potassium Chloride (Klor-Con Tab) 20 meq DAILY PO 03/25/18 09:00 04/24/18 08:59 03/25/18 09:10 20 MEQ Insulin Aspart (novoLOG ASPART) SLIDING SCALE G... ACHS SC 03/25/18 07:00 04/24/18 06:59 Glucose (Glucose 40% Gel) 15-30 GRAMS 15 GRAMS... UD PRN PO 03/25/18 07:00 04/24/18 06:59 Glucose (Glucose Chew Tab) 4-8 Tablets 4 Tabl... UD PRN PO 03/25/18 07:00 04/24/18 06:59 Dextrose (Dextrose 50% 50ML Syringe) 25-50ML 25ML FOR ... UD PRN IV 03/25/18 07:00 04/24/18 06:59 Glucagon (Glucagon Inj) 1 mg UD PRN IM 03/25/18 07:00 04/24/18 06:59 Carbohydrates (Carbohydrates For Hypoglycemia) 15-30 GRAMS 15 grams if BSG 54-69... UD PRN PO 03/25/18 07:00 04/24/18 06:59 Objective Vital Signs Date Time Temp Pulse Resp B/P (MAP) Pulse Ox O2 Delivery O2 Flow Rate FiO2 03/25/18 15:10 36.9 58 16 129/65 (86) 96 Room Air 03/25/18 12:11 37.0 60 22 113/67 (82) 96 Room Air 03/25/18 09:00 98 Room Air 03/25/18 07:54 36.8 63 17 170/76 98 Room Air 03/25/18 06:06 58 18 141/71 96 Room Air 03/25/18 05:31 57 18 149/71 96 Room Air 03/25/18 04:42 59 18 148/78 97 Room Air 03/25/18 03:55 97 Room Air 03/25/18 03:55 36.8 70 18 164/88 97 Room Air 03/25/18 03:55 67 03/25/18 03:55 97 Physical Exam General Appearance: WD/WN, no apparent distress Neck: supple, no adenopathy, trachea midline Respiratory/Chest: lungs clear, no respiratory distress, no accessory muscle use, + pertinent finding (chest wall tender to palpation, left of sternum ) Cardiovascular: regular rate, rhythm, no edema, no murmur Abdomen: normal bowel sounds, non tender, no organomegaly Extremities: non-tender Skin: normal color, warm/dry, no rash Laboratory Results 03/25/18 03:45 Red Blood Count 4.03, Mean Corpuscular Volume 91.6, Mean Corpuscular Hemoglobin 30.0, Mean Corpuscular Hemoglobin Concent 32.8, Mean Platelet Volume 9.6, Neutrophils (%) (Auto) 63.1, Lymphocytes (%) (Auto) 22.6, Monocytes (%) (Auto) 11.0, Eosinophils (%) (Auto) 2.5, Basophils (%) (Auto) 0.7, Neutrophils # (Auto ) 5.52, Lymphocytes # (Auto) 1.98, Monocytes # (Auto) 0.96, Eosinophils # (Auto ) 0.22, Basophils # (Auto) 0.06 03/25/18 03:45 Test 03/25/18 03:45 03/25/18 07:12 03/25/18 11:47 03/25/18 12:18 White Blood Count 8.75 K/uL (4.8-10.8) Red Blood Count 4.03 M/uL (4.2-5.4) Hemoglobin 12.1 g/dL (12.0-16.0) Hematocrit 36.9 % (37-47) Mean Corpuscular Volume 91.6 fL (80-100) Mean Corpuscular Hemoglobin 30.0 pg (25-34) Mean Corpuscular Hemoglobin Concent 32.8 g/dl (32-36) Platelet Count 303 K/uL (130-400) Mean Platelet Volume 9.6 fL (7.4-10.4) Neutrophils (%) (Auto) 63.1 % Lymphocytes (%) (Auto) 22.6 % Monocytes (%) (Auto) 11.0 % Eosinophils (%) (Auto) 2.5 % Basophils (%) (Auto) 0.7 % Neutrophils # (Auto) 5.52 K/uL (1.4-6.5) Lymphocytes # (Auto) 1.98 K/uL (1.2-3.4) Monocytes # (Auto) 0.96 K/uL (0.11-0.59) Eosinophils # (Auto) 0.22 K/uL (0-0.5) Basophils # (Auto) 0.06 K/uL (0-0.2) RDW Standard Deviation 45.7 fL (36.4-46.3) RDW Coefficient of Variation 13.6 % (11.5-14.5) Immature Granulocyte % (Auto) 0.1 % Immature Granulocyte # (Auto) 0.01 K/uL (0.00-0.02) Anion Gap 10.0 mmol/L (3-11) Est Creatinine Clear Calc Drug Dose 38.8 ml/min Estimated GFR () 54.9 Estimated GFR (Non- 47.4 BUN/Creatinine Ratio 26.4 (10-20) Estimated Average Glucose 143 mg/dl Hemoglobin A1c 6.6 % (4.5-5.6) Calcium Level 9.4 mg/dl (8.5-10.1) Total Bilirubin 0.2 mg/dl (0.2-1) Direct Bilirubin < 0.1 mg/dl (0-0.2) Aspartate Amino Transf (AST/SGOT) 26 U/L (15-37) Alanine Aminotransferase (ALT/SGPT) 28 U/L (12-78) Alkaline Phosphatase 78 U/L (45-117) Total Protein 7.4 gm/dl (6.4-8.2) Albumin 3.7 gm/dl (3.4-5.0) Prothrombin Time 9.4 SECONDS (9.0-12.0) Prothromb Time International Ratio 0.9 (0.9-1.1) Activated Partial Thromboplast Time 24.7 SECONDS (21.0-31.0) Partial Thromboplastin Ratio 1.0 Troponin I 0.144 ng/ml (0-0.045) Bedside Glucose 86 mg/dl (70-90) Assessment and Plan Patient is a 82 year old female with a PMH of DM, HLD, HTN, Hypothyroidism, GERD , 2 NE's w/ triple bypass, CABG and 5 stents that presented to [facility] with chest tightness Unstable angina--NSTEMI - While the patient's pain is atypical and the initial troponin was negative, will continue to monitor the patient on telemetry - No indication for PCI at this time, bump in the 2nd trop, will continue to trend - ECHO showed severely reduced EF, pt would be a good candidate for ICD, will follow up in the outpatient with cardiology - EKG in the am and with worsening chest pain - Continue aspirin, plavix, statin and imdur - Nitro prn w/ chest pain - 2mg of morphine q30 minutes w/ pain - Cardiology following, appreciate recommendations HTN - continue telmisartan HLD - continue statin Diabetes - check HbA1c - hold metformin - ISS Hypothyroidism - continue levothyroxine GERD - continue protonix DVT prophylaxis - lovenox Dispo - lives w/ - able to perform ADL's DNR
[2018-03-25 19:00] VITALS: BP 113/56; PULSE 59; TEMP 36.9; O2SAT 94
[2018-03-25] MEDS ORDERED: METFORMIN HCL 500 MG TAB PO SCH (21:00)
[2018-03-25 22:59] VITALS: BP 128/71; PULSE 68; TEMP 36.8; O2SAT 97
[2018-03-26 03:02] VITALS: BP 123/71; PULSE 64; TEMP 37; O2SAT 96
[2018-03-26] MEDS: LEVOTHYROXINE 50 MCG TAB PO SCH (06:05)
[2018-03-26] MEDS: INSULIN ASPART 100 UNITS/ML 3 ML PEN SC SCH (07:00)
[2018-03-26 07:14] VITALS: BP 138/81; PULSE 59; TEMP 37.2; O2SAT 96
--- NOTE | 2018-03-26 07:24 | Discharge Instructions ---
Discharge Instructions Date of Service Mar 26, 2018. Admission Reason for Admission: Unstable Angina Discharge Discharge Diagnosis / Problem: Chest tightness rule out acute coronary syndrome Discharge Goals Goal(s): Decrease discomfort, Improve function, Learn about illness, Diagnostic testing Activity Recommendations Activity Limitations: resume your previous activity . Instructions / Follow-Up Instructions / Follow-Up Farhan oMrgan came to the hospital with chest pain. After running test and following your clinical course with Cardiology, it was determined that your chest pain is unlikely cardiac in nature. We came to this conclusion considering that the pain was present at rest and was present over the course of the day without significant rise in your cardiac enzymes (lab test that tell us if your heart incurred damage). We would like you to follow up with your primary care doctor and your marine services technician regarding this hospitalization. Considering that I could palpate and elicit the pain, your chest tightness maybe due to a strain muscle around the ribs. Gastric reflux can also cause chest pain. Please continue your home medical regimen. Dr. Smith would specifically like you to follow up with him regarding assessment for a device called a ICD or implantable cardioverter defibrillator, a device that protect you from troublesome heart rhythms. This can be discussed and planned in the outpatient setting. Current Hospital Diet Patient's current hospital diet: Discharge Diet Recommended Diet: AHA Diet (Heart Healthy), Low Sodium Diet (2gm Na) Pending Studies Studies pending at discharge: no Laboratory Results Hemoglobin A1c Test 03/25/18 03:45 Range/Units Estimated Average Glucose 143 mg/dl Hemoglobin A1c 6.6 H 4.5-5.6 % Medical Emergencies . Who to Call and When: Medical Emergencies: If at any time you feel your situation is an emergency, please call 911 immediately. . Non-Emergent Contact Non-Emergency issues call your: Primary Care Provider, Cloud Developer . . "Provider Documentation" section prepared by Juan Gallo. .
[2018-03-26 07:40] LABS: HEMATOCRIT 34.8 % (37-47); HEMOGLOBIN 11.5 g/dL (12.0-16.0); MEAN CELL VOLUME 91.8 fL (80-100); MEAN CORPUSCULAR HEMOGLOBIN 30.3 pg (25-34); MEAN PLATELET VOLUME 9.7 fL (7.4-10.4); PLATELET COUNT 290 K/uL (130-400); RED CELL DISTRIBUTION WIDTH CV 13.6 % (11.5-14.5); RED CELL DISTRIBUTION WIDTH SD 45.6 fL (36.4-46.3); WHITE BLOOD COUNT 5.92 K/uL (4.8-10.8)
--- NOTE | 2018-03-26 07:42 | Discharge Summary ---
Discharge Summary Date of Service Mar 26, 2018. 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 * Left ventricular systolic function is moderate to severely reduced. * Restrictive diastolic filling * There are regional wall motion abnormalities as specified. * There is moderate mitral regurgitation. * Right ventricular systolic pressure is elevated at 30-40mmHg. * Compared to a study from 2013, there is no significant change EKG--NSR, left bundle branch block CHEST ONE VIEW PORTABLE HISTORY: left chest pain COMPARISON: Chest 04/01/2014. FINDINGS: There are post sternotomy changes. The heart remains mildly enlarged. The lungs are clear. No pleural effusions. No pneumothorax. IMPRESSION: Stable mild cardiomegaly. No acute process within the chest. Electronically signed by: Ancelmo Michel M.D. 03/25/2018 7:17 AM Dictated Date/Time: 03/25/2018 7:15 AM Consultations: Dr. Smith, Cardiology Medication Reconciliation Continued Medications: Aspirin (Aspirin 81) 81 Mg Tab 81 MG PO DAILY Atorvastatin (Lipitor) 80 Mg Tab 80 MG PO DAILY Calcium Carbonate-Vitamin D (Calcium + D) 1 Tab Tab 1 TAB PO DAILY Clobetasol Propionate (Clobetasol Propionate) 180 Appln/60 Gm Cr 1 APPLN TOP DAILY Clopidogrel (Plavix) 75 Mg Tab 75 MG PO DAILY, TAB Estradiol Vaginal (Estrace) 0.1 Mg/Gm Cre 1 APPLN TOP 2XWK apply to instructed area daily on sundays & Isosorbide Mononitrate Ext Rel (Imdur Ext Rel) 30 Mg Tabcr 30 MG PO QAM Levothyroxine Sodium (Levothyroxine Sodium) 50 Mcg Tab 50 MCG PO QAM Metformin HCl (Metformin HCl) 500 Mg Tab 500 MG PO HS Nitroglycerin (Nitrostat) 0.4 Mg Tab 0.4 MG UT UD PRN for Chest Pain, BTL Pantoprazole (Protonix) 40 Mg Tab 40 MG PO DAILY, #30 TAB Potassium Chloride (K-Tab) 20 Meq Tab 20 MEQ PO DAILY Telmisartan (Micardis) 20 Mg Tab 20 MG PO DAILY Discharge Exam Review of Systems: Constitutional: No fever, No chills, No sweats Respiratory: No cough, No sputum, No wheezing, No shortness of breath, No dyspnea on exertion Cardiovascular: No chest pain, No edema, No palpitations Abdomen: No pain, No nausea, No vomiting Genitourinary - Female: No dysuria, No urinary frequency Physical Exam: General Appearance: WD/WN, no apparent distress Neck: supple, no adenopathy, trachea midline Respiratory/Chest: chest non-tender, lungs clear, normal breath sounds, no respiratory distress, no accessory muscle use Cardiovascular: regular rate, rhythm, no edema, no gallop, no murmur Abdomen / GI: non tender, soft, no organomegaly Extremities: normal inspection, no calf tenderness Neurologic/Psychiatric: alert, normal mood/affect, normal reflexes, oriented x 3 Skin: normal color, warm/dry, no rash Hospital Course Patient is a 82 year old female with a PMH of DM, HLD, HTN, Hypothyroidism, GERD , 2 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 The patient's pain was atypical, but considering her PMH and baseline EKG of a left bundle branch block, cardiology consulted. Patient initial troponin was negative. Her second Troponin showed a slight bump of .14, but ultimately, her third trend back down. Cardiology saw the patient and while they think that the chest pain was unlikely cardiac related, they recommend close follow up and possible ICD placement considering ECHO findings of severely reduced EF. Total Time Spent: Greater than 30 minutes This includes examination of the patient, discharge planning, medication reconciliation, and communication with other providers. Discharge Instructions Please refer to the electronic Patient Visit Report (Discharge Instructions) for additional information. Follow-Up PCP and Cardiology, Dr. Smith Reviewed: Pt Seen/Exam by Me History no further chest pain Constitutional: denies: fever Respiratory: negative: short of breath Cardiovascular: denies chest pain General Appearance: no apparent distress Respiratory: lungs clear, no respiratory distress Cardiovascular: regular rate, rhythm Neurologic/Psychiatric: alert, oriented x 3 Skin Characteristics: warm/dry Assessment/Plan Resident Physician Supervision Note: I independently interviewed and examined the patient and verified the villanueva history and physical, reviewed labs and image studies, discussed the case with the resident Dr. Gallo and agree with the findings and care plan. Time spent in discharge 35 min
[2018-03-26 08:00] VITALS: O2SAT 98
[2018-03-26] MEDS: PANTOprazole SOD 40 MG TAB PO SCH (08:19)
[2018-03-26] MEDS: ATORVASTATIN 40 MG TAB PO SCH (08:19)
[2018-03-26] MEDS: TELMISARTAN 20 MG TAB PO SCH (08:19)
[2018-03-26] MEDS: POTASSIUM CHLORIDE 20 MEQ TABCR PO SCH (08:19)
[2018-03-26] MEDS: CLOPIDOGREL BISULFATE 75 MG TAB PO SCH (08:19)
[2018-03-26] MEDS: ASPIRIN 81 MG ECTAB PO SCH (08:20)
[2018-03-26] MEDS: ISOSORBIDE MONONITRATE 30 MG TABCR PO SCH (08:20)
[2018-03-26] MEDS: ENOXAPARIN 40 MG/0.4 ML SYR SC SCH (08:21)
[2018-03-26 08:31] LABS: CREATININE 1.1 mg/dl (0.60-1.20); POTASSIUM 4.3 mmol/L (3.5-5.1)
--- NOTE | 2018-03-26 09:37 | Cardiology Follow-Up ---
Subjective Date of Service: Mar 26, 2018. Pt evaluation today including: conversation w/ patient, physical exam, chart review, lab review, review of studies, review of inpatient medication list, conversation w/ attending History of Present Illness The patient has been feeling well since admission. She has not have recurrence of her chest pain or burning. She has been ambulatory without symptoms of chest discomfort or limiting dyspnea. Social History Smoking Status: Never Smoker History of Alcohol Use: Yes (Rarely) Review of Systems Respiratory: No cough, No sputum, No wheezing, No shortness of breath Cardiac: + chest pain, No palpitations Per HPI. She has not had any constitutional symptoms recently such as fevers or chills. No lower extremity edema. Normal bowel or bladder habits. No significant abdominal discomfort. Objective Vital Signs Past 12 Hours Date Time Temp Pulse Resp B/P (MAP) Pulse Ox O2 Delivery O2 Flow Rate FiO2 03/26/18 07:14 37.2 59 16 138/81 (100) 96 Room Air 03/26/18 03:02 37.0 64 16 123/71 (88) 96 Room Air 03/25/18 22:59 36.8 68 16 128/71 (90) 97 Room Air Last Recorded Weight-Kilograms: 68.800 Physical Exam She is alert and oriented x3. Mood affect appear normal. She answered all questions appropriately. HEENT: Sclerae are anicteric. Pupils are equal and reactive to light and accommodation. Extraocular movements were intact. Neuro: Cranial nerves intact Neck: Examination of the submandibular region did not reveal any significant lymphadenopathy. Carotids are palpable bilaterally and free of bruits on auscultation. There was no evidence of jugular venous distention. The thyroid was not enlarged. Lungs: Lungs are clear to auscultation bilaterally. There are no rales wheezes or rhonchi. She has normal respiratory effort without use of accessory muscles. There is normal pulmonary excursion. Chest: Well-healed sternotomy scar. Cardiac: The rhythm was regular. S1 and S2 were normal. There are no murmurs on examination. The PMI was not markedly displaced on palpation. Abdomen: The abdomen was soft and nontender. Extremities: Patient has a normal right radial pulse. Left radial pulse is absent. There is no evidence cyanosis or clubbing. There was no evidence of significant peripheral edema bilaterally. Skin: There are no rashes noted on examination today. Data Laboratory Results: Last 24 Hours Test 03/25/18 11:47 03/25/18 12:18 03/25/18 16:18 03/25/18 19:43 Troponin I 0.144 ng/ml 0.096 ng/ml Bedside Glucose 86 mg/dl 82 mg/dl Test 03/25/18 20:22 03/26/18 06:49 03/26/18 07:43 Bedside Glucose 93 mg/dl 95 mg/dl White Blood Count 5.92 K/uL Red Blood Count 3.79 M/uL Hemoglobin 11.5 g/dL Hematocrit 34.8 % Mean Corpuscular Volume 91.8 fL Mean Corpuscular Hemoglobin 30.3 pg Mean Corpuscular Hemoglobin Concent 33.0 g/dl RDW Standard Deviation 45.6 fL RDW Coefficient of Variation 13.6 % Platelet Count 290 K/uL Mean Platelet Volume 9.7 fL Sodium Level 140 mmol/L Potassium Level 4.3 mmol/L Chloride Level 105 mmol/L Carbon Dioxide Level 26 mmol/L Anion Gap 9.0 mmol/L Blood Urea Nitrogen 26 mg/dl Creatinine 1.10 mg/dl Est Creatinine Clear Calc Drug Dose 38.0 ml/min Estimated GFR () 54.9 Estimated GFR (Non- 47.4 BUN/Creatinine Ratio 23.7 Random Glucose 92 mg/dl Calcium Level 9.0 mg/dl Telemetry reviewed: Sinus rhythm Assessment and Plan 1. Chest pain: I do not believe the patient's presenting symptom of chest discomfort represent an acute coronary syndrome or angina. She had very extended episode of symptoms with normal markers on presentation and only a very mild elevation over the course of the past 24 hours. I think if she had truly had a plaque rupture event or significant ischemia during that period of time we would seen much higher elevations in her markers, especially considering her known anatomy. As such, I did not recommend coronary angiography. This would likely be the only viable option for evaluate her coronaries and grafts. I did not feel that the risk of the procedure was worth the potential benefit given the objective evidence we have available. She will continue on her current medical therapy. Ideally she would be on a beta- renetta as well but this has not been prescribed due to symptoms of bradycardia and conduction disease. 2. Ischemic cardiomyopathy: Her degree of LV dysfunction is enough to consider a defibrillator. I think since we are not planning on any additional revascularization we should explore this option. I did describe the procedure to her and the indications. I will provide her with some literature and we will move forward with plans to discuss this again in the outpatient setting. 3. Left bundle-branch block: She would be a good candidate for cardiac resynchronization therapy. Placement of a cardiac rhythm device would also provide some rate support and allow us to institute beta-renetta therapy. 4. Coronary artery disease: Patient is on secondary prevention to include aspirin and atorvastatin. In the past she has had bradycardia associated with beta-blockers. My intention would be to provide her with a biventricular ICD which would then allow us to maximize her medical therapy with the addition of beta-blockers. She should continue on her current medical regimen which includes aspirin, Plavix and high-dose atorvastatin. 5. Mitral regurgitation: Moderate.
[2018-03-26 09:39] VITALS: BP 138/81; PULSE 59; TEMP 37.2; O2SAT 98
== END 2018-03-26 11:30 | disposition home or self-care (01) | DRG 282 ==
LOC: EDBD 03:48 → C.EDB 03:49 → C.2T 05:16 → ENRESERV 05:57
PROVIDERS: ADMIT Hospitalist; ATTEND Family Medicine
DX: I21.4 Non-ST elevation (NSTEMI) myocardial infarction (principal); E11.9 Type 2 diabetes mellitus without complications; E87.5 Hyperkalemia; I10 Essential (primary) hypertension; I25.2 Old myocardial infarction; E03.9 Hypothyroidism, unspecified; K21.9 Gastro-esophageal reflux disease without esophagitis; Z79.82 Long term (current) use of aspirin; Z95.1 Presence of aortocoronary bypass graft; Z82.49 Family history of ischemic heart disease and other diseases of the circulatory system; I25.5 Ischemic cardiomyopathy; I25.110 Atherosclerotic heart disease of native coronary artery with unstable angina pectoris

== ENCOUNTER 2025-04-15 03:00 | Observation (INO) ==
--- NOTE | 2025-04-15 03:35 | Emergency Department Note ---
History of Present Illness General Chief complaint: Cardiac Assessment Stated complaint: PAIN IN SHOULDER BLADES, INTO ARM, CARDIAC HX Time Seen by Provider: 04/15/25 03:21 History of Present Illness Maximum Pain Intensity: 1 This is an 89-year-old female presenting to the emergency department via EMS for evaluation of pain between her shoulder blades. Patient has a well-established cardiac history with three-vessel CABG and 2 previous MIs. The patient states that her pain tonight was identical to previous MIs, and started around midnight to 1 AM. She did take 2 nitroglycerin at home which may have helped, but not completely resolved her pain. She did receive 2 nitroglycerin prehospital by EMS, and this did help her symptoms significantly. Patient has not had fevers or chills. No injuries or trauma. She is on Eliquis and Plavix. 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 She may have had some nausea initially but this also seems to have resolved. No distinct shortness of breath or anterior chest pain. No belly pain. She rates her discomfort a 1/10. Home Medications Medication Instructions Recorded Confirmed Type atorvastatin 80 mg tablet 80 mg PO DAILY 02/06/19 04/15/25 History clopidogrel 75 mg tablet (Plavix) 75 mg PO DAILY 02/06/19 04/15/25 History isosorbide mononitrate 30 mg 30 mg PO DAILY 02/06/19 04/15/25 History tablet,extended release 24 hr nitroglycerin 0.4 mg sublingual See Rx Instructions sublingual 02/06/19 04/15/25 History tablet .COMPLEX PRN Chest Pain pantoprazole 40 mg tablet,delayed 40 mg PO DAILY 02/06/19 04/15/25 History release levothyroxine 50 mcg tablet 50 mcg PO DAILY 02/21/19 04/15/25 History apixaban 5 mg tablet (Eliquis) 5 mg PO BID 02/24/21 04/15/25 History famotidine 40 mg tablet 40 mg PO DAILY 02/24/21 04/15/25 History clobetasol 0.05 % topical cream 1 applic topical 3XWK 03/07/24 04/15/25 History hydrochlorothiazide 12.5 mg capsule 12.5 mg PO DAILY 02/18/25 04/15/25 History metoprolol tartrate 25 mg tablet 12.5 mg PO DAILY 02/18/25 04/15/25 History estradiol 0.01% (0.1 mg/gram) 1 g vaginal WK 04/15/25 04/15/25 History vaginal cream (Estrace) Allergies Allergy/AdvReac Type Severity Reaction Status Date / Time No Known Allergies Allergy Verified 03/07/24 11:30 Past Med/Surg History Problem List (Updated 04/15/25 @ 22:01 by Hair Dunn PA-C) 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 " CAD (coronary artery disease) (Chronic) "History of CABG x 3 (ROGERS-jump graft, unknown targets but not seen on subclavian injection. Likely occluded, Radial-diagnonal is atretic, small diagonal after anastamosis). s/p ALIA ostial/proximal LCx 03/29/14 - good angio result. If patient is symptomatic, evaluate the LM into LAD for possible intervention. continue asa/plavix/BB/stain/ARB. " GERD (gastroesophageal reflux disease) (Chronic) Ischemic cardiomyopathy Bradycardia (Acute) Chest pain (Acute 04/01/14) Elevated troponin (Acute 04/01/14) Hypotension (Acute) STEMI (ST elevation myocardial infarction) (Acute 03/31/14) Medical History 3-vessel coronary artery disease Hyperlipidemia STEMI (ST elevation myocardial infarction) Family History Brother Myocardial infarction Mother Myocardial infarction Other Coronary heart disease Social History Smoking Status: Never smoker Second Hand Exposure: No; Do You Dip or Chew Tobacco: No; Hx Alcohol Use: No Hx Substance Use: No Preferred Language: Luxembourgish Communication Ability: Effective 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[employer] Machine Required: No Beliefs That Will Affect Care: None marital status: Current Living Situation: Spouse current occupational status: retired Feels Safe at Home: Yes Assistive Devices: Glasses Review of Systems A total of 10 systems reviewed and were otherwise negative Physical Exam Vital Signs Vital Signs - 24 hr 04/15/25 03:10 04/15/25 03:10 04/15/25 03:14 Temperature 36.6 C Temperature Source Oral Pulse Rate 91 H 87 Pulse Rate from SpO2 Sensor Respiratory Rate 18 Blood Pressure 146/80 H 146/80 H Blood Pressure [Right Arm] Blood Pressure Mean 99 102 Blood Pressure Mean [Right Arm] Pulse Oximetry 97 Oxygen Delivery Method Room Air Sepsis Recent Fever Within 48 Hours No Sepsis New/Unexplained Change in Mental Status No Sepsis Action Taken by Nursing No Action Required 04/15/25 03:14 04/15/25 03:14 04/15/25 03:15 Temperature Temperature Source Pulse Rate 69 Pulse Rate from SpO2 Sensor 70 Respiratory Rate 18 19 Blood Pressure Blood Pressure [Right Arm] 146/80 H Blood Pressure Mean Blood Pressure Mean [Right Arm] 102 Pulse Oximetry 97 97 97 Oxygen Delivery Method Room Air Room Air Sepsis Recent Fever Within 48 Hours Sepsis New/Unexplained Change in Mental Status Sepsis Action Taken by Nursing 04/15/25 03:26 04/15/25 03:39 04/15/25 03:45 Temperature Temperature Source Pulse Rate 80 83 Pulse Rate from SpO2 Sensor 81 82 Respiratory Rate 9 L 22 Blood Pressure Blood Pressure [Right Arm] Blood Pressure Mean Blood Pressure Mean [Right Arm] Pulse Oximetry 98 97 97 Oxygen Delivery Method Room Air Sepsis Recent Fever Within 48 Hours Sepsis New/Unexplained Change in Mental Status Sepsis Action Taken by Nursing 04/15/25 03:51 04/15/25 04:21 04/15/25 04:42 Temperature Temperature Source Pulse Rate 73 68 67 Pulse Rate from SpO2 Sensor 75 77 66 Respiratory Rate 13 18 17 Blood Pressure Blood Pressure [Right Arm] Blood Pressure Mean Blood Pressure Mean [Right Arm] Pulse Oximetry 97 97 97 Oxygen Delivery Method Sepsis Recent Fever Within 48 Hours Sepsis New/Unexplained Change in Mental Status Sepsis Action Taken by Nursing 04/15/25 04:57 04/15/25 05:06 04/15/25 05:15 Temperature Temperature Source Pulse Rate 68 71 81 Pulse Rate from SpO2 Sensor 69 71 81 Respiratory Rate 16 20 19 Blood Pressure 137/84 Blood Pressure [Right Arm] Blood Pressure Mean 101 Blood Pressure Mean [Right Arm] Pulse Oximetry 96 97 96 Oxygen Delivery Method Sepsis Recent Fever Within 48 Hours Sepsis New/Unexplained Change in Mental Status Sepsis Action Taken by Nursing 04/15/25 05:30 04/15/25 05:48 04/15/25 05:51 Temperature Temperature Source Pulse Rate 67 73 80 Pulse Rate from SpO2 Sensor 81 74 81 Respiratory Rate 15 16 18 Blood Pressure Blood Pressure [Right Arm] Blood Pressure Mean Blood Pressure Mean [Right Arm] Pulse Oximetry 97 97 96 Oxygen Delivery Method Sepsis Recent Fever Within 48 Hours Sepsis New/Unexplained Change in Mental Status Sepsis Action Taken by Nursing 04/15/25 05:54 04/15/25 06:00 04/15/25 06:15 Temperature Temperature Source Pulse Rate 81 67 67 Pulse Rate from SpO2 Sensor 68 67 Respiratory Rate 14 13 Blood Pressure Blood Pressure [Right Arm] Blood Pressure Mean Blood Pressure Mean [Right Arm] Pulse Oximetry 97 96 Oxygen Delivery Method Sepsis Recent Fever Within 48 Hours Sepsis New/Unexplained Change in Mental Status Sepsis Action Taken by Nursing VITALS: Vitals are noted on the nurse's note and reviewed by myself. Vital signs stable. GENERAL: Pleasant elderly female who is in no acute distress. HEAD: Normocephalic atraumatic. NECK: Supple without nuchal rigidity. No lymphadenopathy. No thyromegaly. Cervical spine is nontender. HEART: Regular rate and rhythm LUNGS: Clear to auscultation bilaterally without wheezes, rales or rhonchi. No retractions or accessory muscle use. ABDOMEN: Positive normal bowel sounds x 4. Soft, nontender, without masses or organomegaly. No guarding or rebound tenderness. MUSCULOSKELETAL: No muscle atrophy, erythema, or edema noted. Full range of motion in all extremities. Course Administered Medications Apixaban (Apixaban 5 Mg Tablet) 5 mg PO BID [facility] Stop: 05/15/25 09:39 Last Admin: 04/15/25 20:16 Dose: 5 mg Documented By: Admin: 04/15/25 11:07 Dose: 5 mg Documented By: elmer Atorvastatin Calcium (Atorvastatin 40 Mg Tab) 80 mg PO HS CELE Stop: 05/15/25 20:59 Last Admin: 04/15/25 20:16 Dose: 80 mg Documented By: CALE Clopidogrel Bisulfate (Clopidogrel Bisulfate 75 Mg Tab) 75 mg PO DAILY CELE Stop: 05/15/25 09:39 Last Admin: 04/15/25 11:06 Dose: 75 mg Documented By: elmer Famotidine (Famotidine 40 Mg Tablet) 40 mg PO HS [facility] Stop: 05/15/25 20:59 Last Admin: 04/15/25 20:16 Dose: 40 mg Documented By: BMS Isosorbide Mononitrate (Isosorbide Schleicher Extended Rel 30 Mg Tabcr) 30 mg PO DAILY CELE Stop: 05/15/25 09:39 Last Admin: 04/15/25 11:07 Dose: 30 mg Documented By: elmer Levothyroxine Sodium (Levothyroxine Sodium 50 Mcg Tablet) 50 mcg PO DAILYBB CELE Stop: 05/15/25 09:44 Last Admin: 04/15/25 11:07 Dose: 50 mcg Documented By: elmer Metoprolol Succinate (Metoprolol Succ 25mg Ext Rel Tab) 12.5 mg PO BID CELE Stop: 05/15/25 20:59 Last Admin: 04/15/25 20:15 Dose: 12.5 mg Documented By: CALE Nitroglycerin (Nitroglycerin 2% Ointment 30gm Tube) 0.5 inch EXT Q6H CELE Stop: 05/15/25 17:14 Last Admin: 04/15/25 17:52 Dose: 0.5 inch Documented By: elmer Pantoprazole Sodium (Pantoprazole 40 Mg Tab) 40 mg PO DAILY CELE Stop: 05/15/25 09:39 Last Admin: 04/15/25 11:07 Dose: 40 mg Documented By: elmer Discontinued Medications Atorvastatin Calcium (Atorvastatin 40 Mg Tab) 80 mg PO DAILY CELE Stop: 05/15/25 09:39 Last Admin: 04/15/25 11:27 Dose: Not Given Documented By: elmer Famotidine (Famotidine 40 Mg Tablet) 40 mg PO DAILY CELE Stop: 05/15/25 09:39 Last Admin: 04/15/25 11:27 Dose: Not Given Documented By: elmer Furosemide (Furosemide 40 Mg/4 Ml Vial) 40 mg IV ONE ONE Stop: 04/15/25 15:46 Last Admin: 04/15/25 16:12 Dose: 40 mg Documented By: elmer Hydrochlorothiazide (Hydrochlorothiazide 25 Mg Tab) 12.5 mg PO DAILY CELE Stop: 05/15/25 09:39 Last Admin: 04/15/25 11:07 Dose: 12.5 mg Documented By: elmer Metoprolol Tartrate (Metoprolol Tartrate 25 Mg Tab) 12.5 mg PO DAILY CELE Stop: 05/15/25 09:39 Last Admin: 04/15/25 11:07 Dose: 12.5 mg Documented By: elmer Potassium Chloride (Potassium Chloride Crtab 20 Meq Tabcr) 40 meq PO ONE ONE Stop: 04/15/25 15:46 Last Admin: 04/15/25 16:12 Dose: 40 meq Documented By: elmer Medical Decision Making Differential Diagnosis Differential diagnosis includes, but is not limited to: Myocardial infarction, dysrhythmia, pericarditis, pneumothorax, aortic aneurysm/dissection, DVT/PE, anxiety, GERD, PUD, electrolyte imbalance, thyroid disorder, pneumonia, bronchitis, pancreatitis, and others Laboratory Data 04/15/25 03:14 04/15/25 03:14 Lab Results 04/15/25 04/15/25 Range/Units 03:14 05:02 WBC 9.28 (4.8-10.8) K/ul RBC 3.61 L (4.20-5.40) M/uL Hgb 10.9 L (12.0-16.0) g/dl Hct 32.5 L (37.0-47.0) % MCV 90.0 (80.0-100.0) fL MCH 30.2 (25.0-34.0) pg MCHC 33.5 (32.0-36.0) g/dL RDW Std Deviation 42.7 (36.4-46.3) fL RDW Coeff of Yari 12.9 (11.5-14.5) % Plt Count 248 (130-400) K/uL MPV 9.7 (9.4-12.4) fL Immature Gran % (Auto) 0.4 % Neut % (Auto) 75.4 % Lymph % (Auto) 12.5 % Schleicher % (Auto) 9.8 % Eos % (Auto) 1.3 % Baso % (Auto) 0.6 % Neut # (Auto) 6.99 H (1.40-6.50) K/uL Lymph # (Auto) 1.16 L (1.20-3.40) K/uL Schleicher # (Auto) 0.91 H (0.11-0.59) K/uL Eos # (Auto) 0.12 (0.00-0.50) K/uL Baso # (Auto) 0.06 (0.00-0.20) K/uL Immature Gran # (Auto) 0.04 (0.01-0.20) K/uL PT 10.4 (9.0-12.0) Seconds INR 1.0 (0.9-1.1) APTT 28 (21-31) Seconds PTT Ratio 1.0 Sodium 137 (136-145) mmol/L Potassium 3.3 L (3.5-5.1) mmol/L Chloride 105 (98-107) mmol/L Carbon Dioxide 20 L (21-32) mmol/L Anion Gap 12 H (3-11) BUN 5 L (6-23) mg/dl Creatinine 0.74 (0.6-1.2) mg/dl Est Cr Clr Drug Dosing 46.7 ml/min eGFR 78.26 BUN/Creatinine Ratio 6.8 L (10-20) Glucose 121 H (70-99(Fasting)) mg/dl Calcium 9.3 (8.6-10.3) mg/dl Total Bilirubin 0.5 (0.2-1.0) mg/dl AST 30 (13-39) U/L ALT 22 (7-52) U/L Alkaline Phosphatase 140 H (34-104) U/L Troponin I High Sens 4.6 11.9 D (0-14) pg/ml Total Protein 8.3 (6.0-8.3) gm/dl Albumin 4.9 (3.4-5.0) gm/dl Globulin 3.4 (2.5-4.0) gm/dl Albumin/Globulin Ratio 1.4 (0.9-2) Lipase 25 (11-82) U/L ECG Data Attestation: I personally reviewed and interpreted this ECG as follows: Indication: + chest pain Additional Comments: Atrial paced rhythm at [address] elevation No significant change compared to EKG February 18, 2025 MDM Narrative Physical exam and history were performed. Nursing notes, EMR, and Medication List were personally reviewed. No social concerns were identified as barriers to patients care. History was provided by the Patient and who is at bedside. Patient appears to have pain between her shoulders bringing her to the ER. She states this is identical to previous heart attacks. Patient has received a total of 4 nitroglycerin which seems to have improved her symptoms. IV access was established and labs were obtained. An order was placed for continuous cardiac monitoring. The monitor shows a rate of 78 with atrial paced rhythm. Patient patient's blood work is as above and reviewed. She does not have a significant elevated white blood cell count or gross anemia. Transaminases not diagnostic. Glucose is 121. INR is 1.0. Initial troponin was 4.6. I discussed options of care with the patient, who would like to go home if able. Case was discussed with my attending, and we did perform a second troponin. Unfortunately this second troponin did elevate to 11.9. Escalation of care was considered, and now felt to be necessary. The patient has atypical chest discomfort with an elevating troponin. Case was further discussed with the on-call hospitalist team who agreed to evaluate the patient here in the ER. Please see their dictation for further patient course, plan, and disposition. The chart was completed utilizing [employer] Speech Voice Recognition Software. Grammatical errors, random word insertions, pronoun errors, and incomplete sentences are an occasional consequence of this system due to software limitations, ambient noise, and hardware issues. Any formal questions or concerns about the content, text, or information contained within the body of this dictation should be directly addressed to the provider for clarification. Impression & Plan Chest pain, Elevated troponin Discharge Plan Visit Data Chief Complaint: Cardiac Assessment Stated Complaint: PAIN IN SHOULDER BLADES, INTO ARM, CARDIAC HX ED Provider: Julian Ortega ED Midlevel Provider: Hair Dunn Discharge Problem: Chest pain, Elevated troponin Patient Disposition: Admitted As Inpatient Condition: Good Discharge Instructions Interventions: ED Discharge Assessment Last Done: 04/15/25 08:59
[2025-04-15 03:42] LABS: Hematocrit (blood only) 32.5 % (37.0-47.0); Hemoglobin 10.9 g/dl (12.0-16.0); Immature Granulocytes # (auto) 0.04 K/uL (0.01-0.20); Immature Granulocytes % (auto) 0.4 %; Mean Corpuscular Hemoglobin 30.2 pg (25.0-34.0); Mean Corpuscular Volume 90.0 fL (80.0-100.0); Platelet Count 248 K/uL (130-400); RDW Standard Deviation 42.7 fL (36.4-46.3); Red Blood Count 3.61 M/uL (4.20-5.40); White Blood Count 9.28 K/ul (4.8-10.8)
[2025-04-15 04:00] LABS: Alanine Aminotransferase 22.0 U/L (7-52); Albumin Globulin Ratio 1.4 (0.9-2); Alkaline Phosphatase 140.0 U/L (34-104); Anion Gap 12.0 (3-11); Bilirubin,Total 0.5 mg/dl (0.2-1.0); Blood Urea Nitrogen 5.0 mg/dl (6-23); Calcium 9.3 mg/dl (8.6-10.3); Carbon Dioxide 20.0 mmol/L (21-32); Chloride 105.0 mmol/L (98-107); Creatinine Clr Calc Pharmacy 46.7 ml/min; Globulin 3.4 gm/dl (2.5-4.0); Glucose 121.0 mg/dl (70-99(Fasting)); Lipase 25.0 U/L (11-82); Potassium 3.3 mmol/L (3.5-5.1); Sodium 137.0 mmol/L (136-145); Total Protein 8.3 gm/dl (6.0-8.3)
[2025-04-15 04:14] LABS: INR 1.0 (0.9-1.1); Partial Thromboplastin Time 28 Seconds (21-31); Prothrombin Time 10.4 Seconds (9.0-12.0)
--- NOTE | 2025-04-15 05:12 | XRay Report ---
EXAM: XR chest 1V portable CLINICAL HISTORY: Chest pain, nonspecific. TECHNIQUE: An X-ray image of the chest is obtained in AP portable projection. COMPARISON: Prior X-ray 02/18/2025 FINDINGS: Pulmonary Parenchyma: Mild accentuated bilateral basal lung markings may be mild inflammation or congestion that needs clinical correlation. Mild progressive Lungs are clear bilaterally. No evidence of consolidation, collapse, or focal opacities. No pulmonary nodules are identified. Bilateral middle and lower lung zones show few atelectatic bands. No evidence of pleural effusion or pleural thickening. Heart and Mediastinum: Apparent mild cardiomegaly (Limited evaluation of the cardiac size given an AP projection). No mediastinal widening or masses. No hilar or mediastinal lymphadenopathy. Pacemaker seen with leads in place. Atrial appendage occlusion device is seen. Bony Thorax: Bony thorax appears intact without fractures or deformities. Median sternotomy sutures. Soft Tissues: Soft tissues overlying the chest wall are unremarkable. Monitor leads noted. IMPRESSION: 1. No gross airspace opacities or pleural effusions. 2. Mild accentuated bilateral basal lung markings may be mild inflammation or congestion that needs clinical correlation. Mild progressive 3. Otherwise, no significant interval changes. Electronically signed by Jose Francisco Ovalles 04-15-2025 05:11 AM
--- NOTE | 2025-04-15 06:21 | History & Physical Report ---
Date of Service April 15, 2025 Assessment & Plan (1) Chest pain: (2) CAD (coronary artery disease): (3) Hypertension: (4) GERD (gastroesophageal reflux disease): Plan 89yo female with history of CAD s/p CABG x3v with subsequent stenting, biventricular pacer in place presenting with chest pain that woke her from sleep. Troponin increasing on repeat. EKG non-ischemic. Chest pain free at present. Has received Nitro x 4 doses as well as ASA 324mg #Chest pain - Moderate risk by HEART score -Observation to medical with telemetry -Trend troponin to peak -Check 2D echo -Cardiology consultation if troponin continues to increase or new findings on echo -Continue home medications - Plavix, Atorvastatin, Metoprolol -Nitro as needed #HF - -Repeat echo -Continue Metoprolol, Isosorbide #Hypothyroid -Continue Synthroid #GERD -Continue Protonix, Pepcid #PAF -Continue Eliquis Metoprolol History of Present Illness Chief Complaint: Chest pain Primary Care Provider: NO PCP Irma Marinelli is a pleasant 89yo female with history of CAD s/p CABG x 3V with subsequent stenting, s/p AICD placement presenting with chest pain that woke her from sleep. Patient went to bed last night around 00:30. She had no complaints during the day. at 23:30 she woke with a "nagging pain" between her shoulder blades. She described the pain as "nagging and aching" with radiation down her left arm with some tingling. She initially took 2 TUMS and tried to go back to sleep but the pain persisted so she took a Nitroglycerine. She got some relief of the pain but then it returned so she took a second Nitroglycerine. Again, she had some temporary relief of the pain but then it returned. At 02:30 she had ongoing pain and felt generally weak so she woke her and they called EMS. wage hand administered ASA 324mg PO and two additional doses of Nitroglycerine. Patient with no further chest pain at present. Patient with history of CAD. She had an DC in 2005. She had CABG x 3V performed on 07/21/2013 in [place]. In January 2014 she developed pain similar to tonight - aching between her shoulder blades. She ignored the pain for a while then finally came in to the hospital on 2013 and was found to have an DC. She reports being taken to the cheesemaking laborer at that point and found that her vascular grafting had failed and atrophied. She had two stents placed. She has been doing fairly well since then and denies exertional symptoms or chest pain other than tonight. In the ER she is afebrile, HD stable, NAD, no chest pain at present Allergies Allergy/AdvReac Type Severity Reaction Status Date / Time No Known Allergies Allergy Verified 03/07/24 11:30 Home Medications Medication Instructions Recorded Confirmed Type atorvastatin 80 mg tablet 80 mg PO DAILY 02/06/19 04/15/25 History clopidogrel 75 mg tablet (Plavix) 75 mg PO DAILY 02/06/19 04/15/25 History isosorbide mononitrate 30 mg 30 mg PO DAILY 02/06/19 04/15/25 History tablet,extended release 24 hr nitroglycerin 0.4 mg sublingual See Rx Instructions sublingual 02/06/19 04/15/25 History tablet .COMPLEX PRN Chest Pain pantoprazole 40 mg tablet,delayed 40 mg PO DAILY 02/06/19 04/15/25 History release levothyroxine 50 mcg tablet 50 mcg PO DAILY 02/21/19 04/15/25 History apixaban 5 mg tablet (Eliquis) 5 mg PO BID 02/24/21 04/15/25 History famotidine 40 mg tablet 40 mg PO DAILY 02/24/21 04/15/25 History clobetasol 0.05 % topical cream 1 applic topical 3XWK 03/07/24 04/15/25 History hydrochlorothiazide 12.5 mg capsule 12.5 mg PO DAILY 02/18/25 04/15/25 History metoprolol tartrate 25 mg tablet 12.5 mg PO DAILY 02/18/25 04/15/25 History estradiol 0.01% (0.1 mg/gram) 1 g vaginal WK 04/15/25 04/15/25 History vaginal cream (Estrace) Past Med/Surg History Problem List Biventricular cardiac pacemaker in situ Acute heart failure with preserved ejection fraction Chest heaviness Hypertension Cardiogenic shock (Acute) Acute DC (Acute) "s/p Drug Eluting Stent ostial/proximal LCx 03/29 s/p temporary pacer 03/29 for cardiogenic shock/junctional bradycardia. " CAD (coronary artery disease) (Chronic) "History of CABG x 3 (ROGERS-jump graft, unknown targets but not seen on subclavian injection. Likely occluded, Radial-diagnonal is atretic, small diagonal after anastamosis). s/p ALIA ostial/proximal LCx 03/29/14 - good angio result. If patient is symptomatic, evaluate the LM into LAD for possible intervention. continue asa/plavix/BB/stain/ARB. " GERD (gastroesophageal reflux disease) (Chronic) Ischemic cardiomyopathy Bradycardia (Acute) Chest pain (Acute 04/01/14) Elevated troponin (Acute 04/01/14) Hypotension (Acute) STEMI (ST elevation myocardial infarction) (Acute 03/31/14) Medical History 3-vessel coronary artery disease Hyperlipidemia STEMI (ST elevation myocardial infarction) Family History Brother Myocardial infarction Mother Myocardial infarction Other Coronary heart disease Social History Smoking Status: Never smoker Second Hand Exposure: No; Do You Dip or Chew Tobacco: No; Hx Alcohol Use: No Hx Substance Use: No Preferred Language: Serbian Communication Ability: Effective Websphere Portal Developer Required: No Beliefs That Will Affect Care: None marital status: Current Living Situation: Spouse current occupational status: retired Feels Safe at Home: Yes Assistive Devices: Glasses Review of Systems Review of Systems: All systems reviewed & are unremarkable except as noted in HPI & below Physical Exam Physical Exam: General: patient resting comfortably, NAD, non-toxic in appearance, AA&O x 4 Skin: warm, dry, intact, no rashes or lesions HEENT: NC/AT, PERRL, EOMI, anicteric sclera, conjunctiva without injection, external ear normal to inspection and nontender, nares patent, moist mucus membranes, dentition intact, no oropharyngeal lesions, neck supple, trachea midline, no LAD, no thyromegaly, no JVD Heart: +S1/S2, regular, no m/r/g, no reproducible chest wall pain, no epigstric pain Lungs: equal air entry bilaterally, no rales/rhonchi/wheezes Abd: +BS, soft, NT/ND, no masses/organomegaly/ascites Ext: warm, 2+ pulses in UE/LE bilaterally, no clubbing/cyanosis or edema Neuro: nonfocal, patient AA&O x 4, speech intact, no facial droop, moving all extremities on command with equal strength 5/5 Results & Data Results & Data Vital Signs (Past 12 Hours) Vital Signs Temp Pulse Resp BP BP Pulse Ox O2 Del Method 04/15/25 05:54 81 04/15/25 04:57 68 16 96 04/15/25 04:42 67 17 97 04/15/25 04:21 68 18 97 04/15/25 03:51 73 13 97 04/15/25 03:45 83 22 97 04/15/25 03:39 80 9 L 97 04/15/25 03:26 98 Room Air 04/15/25 03:15 69 19 97 04/15/25 03:14 18 146/80 H 97 Room Air 04/15/25 03:14 97 Room Air 04/15/25 03:14 36.6 C 87 18 146/80 H 97 Room Air 04/15/25 03:10 146/80 H 04/15/25 03:10 91 H Laboratory Results Laboratory Results WBC 9.28 K/ul (4.8-10.8) 04/15/25 03:14 RBC 3.61 M/uL (4.20-5.40) L 04/15/25 03:14 Hgb 10.9 g/dl (12.0-16.0) L 04/15/25 03:14 Hct 32.5 % (37.0-47.0) L 04/15/25 03:14 MCV 90.0 fL (80.0-100.0) 04/15/25 03:14 MCH 30.2 pg (25.0-34.0) 04/15/25 03:14 MCHC 33.5 g/dL (32.0-36.0) 04/15/25 03:14 RDW Std Deviation 42.7 fL (36.4-46.3) 04/15/25 03:14 RDW Coeff of [place] 12.9 % (11.5-14.5) 04/15/25 03:14 Plt Count 248 K/uL (130-400) 04/15/25 03:14 MPV 9.7 fL (9.4-12.4) 04/15/25 03:14 Immature Gran % (Auto) 0.4 % 04/15/25 03:14 Neut % (Auto) 75.4 % 04/15/25 03:14 Lymph % (Auto) 12.5 % 04/15/25 03:14 [place] % (Auto) 9.8 % 04/15/25 03:14 Eos % (Auto) 1.3 % 04/15/25 03:14 Baso % (Auto) 0.6 % 04/15/25 03:14 Neut # (Auto) 6.99 K/uL (1.40-6.50) H 04/15/25 03:14 Lymph # (Auto) 1.16 K/uL (1.20-3.40) L 04/15/25 03:14 [place] # (Auto) 0.91 K/uL (0.11-0.59) H 04/15/25 03:14 Eos # (Auto) 0.12 K/uL (0.00-0.50) 04/15/25 03:14 Baso # (Auto) 0.06 K/uL (0.00-0.20) 04/15/25 03:14 Immature Gran # (Auto) 0.04 K/uL (0.01-0.20) 04/15/25 03:14 PT 10.4 Seconds (9.0-12.0) 04/15/25 03:14 INR 1.0 (0.9-1.1) 04/15/25 03:14 APTT 28 Seconds (21-31) 04/15/25 03:14 PTT Ratio 1.0 04/15/25 03:14 Sodium 137 mmol/L (136-145) 04/15/25 03:14 Potassium 3.3 mmol/L (3.5-5.1) L 04/15/25 03:14 Chloride 105 mmol/L (98-107) 04/15/25 03:14 Carbon Dioxide 20 mmol/L (21-32) L 04/15/25 03:14 Anion Gap 12 (3-11) H 04/15/25 03:14 BUN 5 mg/dl (6-23) L 04/15/25 03:14 Creatinine 0.74 mg/dl (0.6-1.2) 04/15/25 03:14 Est Cr Clr Drug Dosing 46.7 ml/min 04/15/25 03:14 eGFR 78.26 04/15/25 03:14 BUN/Creatinine Ratio 6.8 (10-20) L 04/15/25 03:14 Glucose 121 mg/dl (70-99(Fasting)) H 04/15/25 03:14 Calcium 9.3 mg/dl (8.6-10.3) 04/15/25 03:14 Magnesium 2.0 mg/dl (1.7-2.4) 04/15/25 11:31 Total Bilirubin 0.5 mg/dl (0.2-1.0) 04/15/25 11:31 Direct Bilirubin 0.1 mg/dl (0-0.2) 04/15/25 11:31 AST 24 U/L (13-39) 04/15/25 11:31 ALT 20 U/L (7-52) 04/15/25 11:31 Alkaline Phosphatase 60 U/L (34-104) 04/15/25 11:31 Troponin I High Sens 17.8 pg/ml (0-14) H D 04/15/25 11:31 Total Protein 6.2 gm/dl (6.0-8.3) D 04/15/25 11:31 Albumin 3.7 gm/dl (3.4-5.0) 04/15/25 11:31 Globulin 3.4 gm/dl (2.5-4.0) 04/15/25 03:14 Albumin/Globulin Ratio 1.4 (0.9-2) 04/15/25 03:14 Lipase 25 U/L (11-82) 04/15/25 03:14 Urine Color Yellow 04/15/25 07:24 Urine Appearance Clear (Clear) 04/15/25 07:24 Urine pH 6.5 (4.5-7.5) 04/15/25 07:24 Ur Specific [place] 1.014 (1.000-1.030) 04/15/25 07:24 Urine Protein Negative (Negative) 04/15/25 07:24 Urine Glucose (UA) Negative (Negative) 04/15/25 07:24 Urine Ketones Negative (Negative) 04/15/25 07:24 Urine Blood Negative (Negative) 04/15/25 07:24 Urine Nitrite Negative (Negative) 04/15/25 07:24 Urine Bilirubin Negative (Negative) 04/15/25 07:24 Urine Urobilinogen Negative (Negative) 04/15/25 07:24 Ur Leukocyte Esterase Trace (Negative) H 04/15/25 07:24 Urine WBC (Auto) 0-5 /hpf (0-5) 04/15/25 07:24 Urine RBC (Auto) 0-2 /hpf (0-2) 04/15/25 07:24 U Hyaline Cast (Auto) 0-2 /lpf (0-2) 04/15/25 07:24 U Epithel Cells (Auto) 0-2 /hpf (0-2) 04/15/25 07:24 Urine Bacteria (Auto) None Seen (None Seen) 04/15/25 07:24 Urine Comment 04/15/25 07:24 Impressions Chest X-Ray 04/15/25 03:21 EXAM: XR chest 1V portable CLINICAL HISTORY: Chest pain, nonspecific. TECHNIQUE: An X-ray image of the chest is obtained in AP portable projection. COMPARISON: Prior X-ray 02/18/2025 FINDINGS: Pulmonary Parenchyma: Mild accentuated bilateral basal lung markings may be mild inflammation or congestion that needs clinical correlation. Mild progressive Lungs are clear bilaterally. No evidence of consolidation, collapse, or focal opacities. No pulmonary nodules are identified. Bilateral middle and lower lung zones show few atelectatic bands. No evidence of pleural effusion or pleural thickening. Heart and Mediastinum: Apparent mild cardiomegaly (Limited evaluation of the cardiac size given an AP projection). No mediastinal widening or masses. No hilar or mediastinal lymphadenopathy. Pacemaker seen with leads in place. Atrial appendage occlusion device is seen. Bony Thorax: Bony thorax appears intact without fractures or deformities. Median sternotomy sutures. Soft Tissues: Soft tissues overlying the chest wall are unremarkable. Monitor leads noted. IMPRESSION: 1. No gross airspace opacities or pleural effusions. 2. Mild accentuated bilateral basal lung markings may be mild inflammation or congestion that needs clinical correlation. Mild progressive 3. Otherwise, no significant interval changes. Electronically signed by Jose Francisco Ovalles 04-15-2025 05:11 AM Code Status & VTE Plan VTE Prophylaxis Plan VTE Prophylaxis will be ordered: Yes PG Care Time/CCT Total # of Minutes Spent Total Time Spent with Patient: Total time spent is greater than 50% in coordination of care (as documented) at patient's floor/unit and/or counseling patient: Coding Level of Care Code 65887 INT INP/OBS CARE 3/75MIN Diagnoses Chest pain R07.9 Coronary artery disease involving [place] coronary artery of [place] heart with other form of angina pectoris I25.118 Coronary Disease-Associated Artery/Lesion type: [place] artery [place] vs. transplanted heart: [place] heart Associated angina: with other forms of angina Hypertension I10 GERD (gastroesophageal reflux disease) K21.9 (2) CAD (coronary artery disease) Coronary Disease-Associated Artery/Lesion type: [place] artery [place] vs. transplanted heart: [place] heart Associated angina: with other forms of angina Qualified Code(s): I25.118 - Atherosclerotic heart disease of [place] coronary artery with other forms of angina pectoris
[2025-04-15 08:36] LABS: Appearance Urine Clear (Clear); Bacteria Urine Automated None Seen (None Seen); Cast Urine Automated 0-2 /lpf (0-2); Epithelial Cell Urine Auto 0-2 /hpf (0-2); Glucose Urine UA Negative (Negative); RBC Urine Automated 0-2 /hpf (0-2); WBC Urine Automated 0-5 /hpf (0-5)
[2025-04-15] MEDS ORDERED: ACETAMINOPHEN 325 MG TAB PO PRN (09:40)
[2025-04-15] MEDS ORDERED: DOCUSATE SODIUM 100 MG CAP PO PRN (09:40)
[2025-04-15] MEDS ORDERED: POLYETHYLENE (MIRALAX) 17 GM PACK PO PRN (09:40)
[2025-04-15] MEDS ORDERED: ONDANSETRON INJ 2 MG/ML 2 ML VIAL IV PRN (09:40)
[2025-04-15] MEDS ORDERED: NITROGLYCERIN SL 0.4 MG/TAB TAB SL PRN (09:40)
[2025-04-15] MEDS: CLOPIDOGREL BISULFATE 75 MG TAB PO SCH (11:06)
[2025-04-15] MEDS: ATORVASTATIN 40 MG TAB PO SCH ×2 (11:07→20:16)
[2025-04-15] MEDS: METOPROLOL TARTRATE 25 MG TAB PO SCH (11:07)
[2025-04-15] MEDS: ISOSORBIDE MONO EXTENDED REL 30 MG TABCR PO SCH (11:07)
[2025-04-15] MEDS: APIXABAN 5 MG TABLET PO SCH (11:07)
[2025-04-15] MEDS: hydroCHLOROthiazide 25 MG TAB PO SCH (11:07)
[2025-04-15] MEDS: LEVOTHYROXINE SODIUM 50 MCG TABLET PO SCH (11:07)
[2025-04-15] MEDS: FAMOTIDINE 40 MG TABLET PO SCH ×2 (11:08→20:16)
[2025-04-15 12:13] LABS: Alanine Aminotransferase 20.0 U/L (7-52); Alkaline Phosphatase 60.0 U/L (34-104); Bilirubin,Total 0.5 mg/dl (0.2-1.0); Total Protein 6.2 gm/dl (6.0-8.3)
--- NOTE | 2025-04-15 13:34 | Cardiology Consultation ---
Date of Consultation April 15, 2025 Assessment & Plan (1) Hypertension: (2) Chest heaviness: (3) Acute heart failure with preserved ejection fraction: (4) CAD (coronary artery disease): (5) Biventricular cardiac pacemaker in situ: Plan Patient is an 89 year old female admitted with episode of subscapular back pain/chest heaviness awakening her from sleep. Long history of underlying ischemic heart disease, with multiple prior interventions, CABG in 2012. Details of interventions unknown. Most recent intervention per patient was in 2013. She reports her symptoms last night were similar to prior [place] in 2014. Symptoms improved with Nitro on route to the ER. EKG with chronic AV dual pacing. No acute changes. Chest xray with mild vascular congestion. Echo with preserved LVEF, elevated pulm pressures and moderate MR. Higher pressures noted when compared with 2023 study. HS troponin unremarkable x2, 3rd set at 17. Repeat pending. Hypertensive on arrival and during other recent visits. Currently resting comfortably. Only mild subscapular pain and mild residual heaviness reported at rest. Options discussed with patient. Symptoms consistent with Acute HFpEF in setting of hypertensive urgency. Medical management recommended for current symptoms. No indication for coronary catheterization or intervention at this time. Recommend: 1. Furosemide 40 mg IV x1 dose now with potassium 40 meq 2. Stop HCTZ 3. hold isosorbide 30 mg daily 4. Start nitro ointment 2% every 6 hours 5. Continue Eliquis for history of PAF 6. Continue plavix for history of multiple coronary interventions 7. continue statin 8. Transition metoprolol tartrate to metoprolol succinate 12.5 mg BID for GDMT 9. Consider adding CHILANGO/ARB tomorrow 10. Consider adding spironolactone and loop diuretic on discharge as well. Further recommendations pending review/discussion with Dr. Gillespie I spent a total of 60 minutes on the date of service in preparation, delivery, and documentation of the care provided to this patient, excluding any time spent in the performance of separately billed services. Carley Blanco PA-C Department of Cardiology, [facility] This chart was completed in part utilizing Speech Voice Recognition Software. Grammatical errors, random word insertions, pronoun errors, and incomplete sentences are an occasional consequence of this system due to software limitations, ambient noise, and hardware issues. Any formal questions or concerns about the content, text, or information contained within the body of this dictation should be directly addressed to the provider for clarification. Supervising Physician Co-Signing Physician Notes I have personally performed a history and physical examination on the patient. I have reviewed the advance practitioner's documentation, and I agree with, and take responsibility for the plan of care. 89-year-old female with complex cardiovascular history noted above presents with acute episode of back and chest discomfort waking from sleep. Diuretic reduced in November with elevated blood pressures noted over the past 3 months. X-ray evidence of vascular congestion and significantly elevated blood pressure on admission. ECG nondiagnostic due to underlying ventricular pacing. Troponins minimally elevated. Echocardiogram demonstrating preserved LV function with evidence of pulmonary hypertension and moderate mitral regurgitation. Recommend treatment of hypertensive urgency and acute heart failure with preserved ejection fraction. Patient prefers to avoid invasive procedures at this time. Recommendations: Add topical nitrates for afterload reduction. Hold isosorbide monohydrate. Discontinue hydrochlorothiazide. Furosemide 40 mg x 1 now. Monitor fluid balance, daily weight, GFR, and electrolytes. Continue Eliquis and Plavix as ordered. Transition metoprolol to tartrate 12.5 mg daily to metoprolol succinate 12.5 mg twice daily. Add CHILANGO inhibitor/ARB in a.m. 04/16/2025. Possible addition of Aldactone during hospitalization. Andrea Gillespie DO, [facility] I spent a total of 40 minutes on the date of service in preparation, delivery, and documentation of the care provided to this patient, excluding any time spent in the performance of separately billed services. History of Present Illness Reason for Consultation: Pain between her shoulder blades; history of CAD Requesting Physician: MANUEL Hospitalist Attending Physician: Dr. Gillespie History of Present Illness Patient is an 89 year old female presented to [facility] with complaints of pain between her shoulder blades and mild chest heaviness, starting around 1:00 AM that awakened her from sleep. She felt mild nausea and got up to drink water and took TUMS. No significant improvement. She then decided to take a nitro, which mildly aided her symptoms. About 40 minutes later, her symptoms seemed to progress and she tried a 2nd SL nitro. Due to concerns that her symptoms were similar to prior [place], she called EMS. On route to ER, patient was treated with additional nitro spray which alleviated her symptoms. In the ER, initial HS troponin negative x2. 3rd troponin minimally increased at 17. EKG demonstrated AV paced with underlying LBBB. Chest xray with mild pulm vascular congestion. She was hypertensive on arrival. Echo completed this morning demonstrated preserved LVEF, septal motion consistent with pacemaker activation. Elevated pulm pressures noted. Patient reports she has been feeling well until this event. She reports she monitors her BP at home and typically in the 120's. She weighs herself each day and denies recent weight gain. She does admit to increased abdominal bloating over the last several weeks. Several months ago her HCTZ was reduced from 25 to 12.5 mg daily by her nephrology. At time of consult, patient resting comfortably. She reports mild ache in her back persists, but improved from admission. Mild chest "heaviness" but no specific SOB. No orthopnea, PND or edema. No palpitations. No dizziness. History includes: 1. ICM s/p BiV ICD chamber ICD 04/25/2018 Dr. Smith 2. CAD s/p [place] with history of PCIs and CABG x3 07/21/2013; (PCI 11/14/2004, 09/10/2006, 03/29/2014, 09/08/2015) 3. pAF on metoprolol and Eliquis [id number] 6 (female, CAD, HTN, DM, age) (based on device check was only back in 10/2020 when she had that syncopal episode) 4. HTN 5. HLD 6. Hypothyroidism 7. GERD Allergies Allergy/AdvReac Type Severity Reaction Status Date / Time No Known Allergies Allergy Verified 03/07/24 11:30 Home Medications Medication Instructions Recorded Confirmed Type atorvastatin 80 mg tablet 80 mg PO DAILY 02/06/19 04/15/25 History clopidogrel 75 mg tablet (Plavix) 75 mg PO DAILY 02/06/19 04/15/25 History isosorbide mononitrate 30 mg 30 mg PO DAILY 02/06/19 04/15/25 History tablet,extended release 24 hr nitroglycerin 0.4 mg sublingual See Rx Instructions sublingual 02/06/19 04/15/25 History tablet .COMPLEX PRN Chest Pain pantoprazole 40 mg tablet,delayed 40 mg PO DAILY 02/06/19 04/15/25 History release levothyroxine 50 mcg tablet 50 mcg PO DAILY 02/21/19 04/15/25 History apixaban 5 mg tablet (Eliquis) 5 mg PO BID 02/24/21 04/15/25 History famotidine 40 mg tablet 40 mg PO DAILY 02/24/21 04/15/25 History clobetasol 0.05 % topical cream 1 applic topical [id number] 03/07/24 04/15/25 History hydrochlorothiazide 12.5 mg capsule 12.5 mg PO DAILY 02/18/25 04/15/25 History metoprolol tartrate 25 mg tablet 12.5 mg PO DAILY 02/18/25 04/15/25 History estradiol 0.01% (0.1 mg/gram) 1 g vaginal WK 04/15/25 04/15/25 History vaginal cream (Estrace) Patient History Medical History 3-vessel coronary artery disease Hyperlipidemia STEMI (ST elevation myocardial infarction) Family History Brother Myocardial infarction Mother Myocardial infarction Other Coronary heart disease Social History Smoking Status: Never smoker Second Hand Exposure: No; Do You Dip or Chew Tobacco: No; Hx Alcohol Use: No Hx Substance Use: No Preferred Language: Croatian Communication Ability: Effective Dealer Support Technician Required: No Beliefs That Will Affect Care: None marital status: Current Living Situation: Spouse current occupational status: retired Feels Safe at Home: Yes Assistive Devices: Glasses Review of Systems Review of Systems: All systems reviewed & are unremarkable except as noted in HPI & below Physical Exam Constitutional: WD/WN, vitals as above well developed; no acute distress Neck: trachea midline, no thyromegaly Respiratory: normal respiratory effort Auscultation: lungs clear to auscultation bilaterally Cardiovascular: Rate/Rhythm: regular rate and regular rhythm Heart Sounds: no murmur Vessels: + JVD Extremities: no edema Gastrointestinal (Abdomen): normal bowel sounds, soft, nontender, no hepatosplenomegaly Neurologic: PERRL, EOMI, accommodation nl, no face palsy, no dysarthria Psychiatric: A+Ox3, euthymic affect Results & Data Vital Signs (Past 12 Hours) Vital Signs Temp Pulse Pulse Resp BP BP Pulse Ox 04/15/25 11:39 36.4 C L 69 18 162/70 H 98 04/15/25 09:44 60 04/15/25 09:41 36.4 C L 69 18 175/81 H 97 04/15/25 08:59 70 17 165/74 H 97 04/15/25 07:00 65 15 160/86 H 95 04/15/25 06:15 67 13 96 04/15/25 06:00 67 14 97 04/15/25 05:54 81 04/15/25 05:51 80 18 96 04/15/25 05:48 73 16 97 04/15/25 05:30 67 15 97 04/15/25 05:15 81 19 96 04/15/25 05:06 71 20 137/84 97 04/15/25 04:57 68 16 96 04/15/25 04:42 67 17 97 04/15/25 04:21 68 18 97 04/15/25 03:51 73 13 97 04/15/25 03:45 83 22 97 04/15/25 03:39 80 9 L 97 04/15/25 03:26 98 04/15/25 03:15 69 19 97 04/15/25 03:14 18 146/80 H 97 04/15/25 03:14 97 04/15/25 03:14 36.6 C 87 18 146/80 H 97 04/15/25 03:10 146/80 H 04/15/25 03:10 91 H O2 Del Method 04/15/25 11:39 Room Air 04/15/25 09:44 04/15/25 09:41 Room Air 04/15/25 08:59 Room Air 04/15/25 07:00 Room Air 04/15/25 06:15 04/15/25 06:00 04/15/25 05:54 04/15/25 05:51 04/15/25 05:48 04/15/25 05:30 04/15/25 05:15 04/15/25 05:06 04/15/25 04:57 04/15/25 04:42 04/15/25 04:21 04/15/25 03:51 04/15/25 03:45 04/15/25 03:39 04/15/25 03:26 Room Air 04/15/25 03:15 04/15/25 03:14 Room Air 04/15/25 03:14 Room Air 04/15/25 03:14 Room Air 04/15/25 03:10 04/15/25 03:10 Laboratory Results Cardiac Enzymes 04/15/25 04/15/25 04/15/25 Range/Units 03:14 05:02 11:31 AST 30 24 (13-39) U/L Troponin I High Sens 4.6 11.9 D 17.8 H D (0-14) pg/ml Coagulation 04/15/25 Range/Units 03:14 PT 10.4 (9.0-12.0) Seconds APTT 28 (21-31) Seconds CBC 04/15/25 Range/Units 03:14 WBC 9.28 (4.8-10.8) K/ul RBC 3.61 L (4.20-5.40) M/uL Hgb 10.9 L (12.0-16.0) g/dl Hct 32.5 L (37.0-47.0) % Plt Count 248 (130-400) K/uL Neut # (Auto) 6.99 H (1.40-6.50) K/uL Lymph # (Auto) 1.16 L (1.20-3.40) K/uL Gilliam # (Auto) 0.91 H (0.11-0.59) K/uL Eos # (Auto) 0.12 (0.00-0.50) K/uL Baso # (Auto) 0.06 (0.00-0.20) K/uL Comprehensive Metabolic Panel 04/15/25 04/15/25 Range/Units 03:14 11:31 Sodium 137 (136-145) mmol/L Potassium 3.3 L (3.5-5.1) mmol/L Chloride 105 (98-107) mmol/L Carbon Dioxide 20 L (21-32) mmol/L BUN 5 L (6-23) mg/dl Creatinine 0.74 (0.6-1.2) mg/dl Glucose 121 H (70-99(Fasting)) mg/dl Calcium 9.3 (8.6-10.3) mg/dl Direct Bilirubin 0.1 (0-0.2) mg/dl AST 30 24 (13-39) U/L ALT 22 20 (7-52) U/L Alkaline Phosphatase 140 H 60 (34-104) U/L Total Protein 8.3 6.2 D (6.0-8.3) gm/dl Albumin 4.9 3.7 (3.4-5.0) gm/dl Intake and Output 04/14/25 04/15/25 04/15/25 22:59 06:59 14:59 Other: Weight 62.8 kg 59.874 kg Weight Measurement Method Built in Bedscale Built in Bedscale Patient Weight 04/16/25 06:59 Weight 59.874 kg Diagnostic Findings Telemetry reviewed: AV paced rhythm. No arrhythmias EKG reviewed from admission: dual AV pacing Echo results reviewed: Normal LVEF at 50-55% Mild concentric LVH Septal motion is consistent with pacemaker activation LA is moderately dilated Aortic valve sclerosis mild, without significant aortic valvular stenosis Moderate MR Moderate TR Estimated systolic pulm pressure is 50 mmHg Compared with prior echo in December 2023 - Moderate MR now present and pulm pressures are elevated Outpatient records reviewed: Device interrogation reviewed from January 2025: Battery longevity of 5.25 years 60% atrial paced, 99% ventricular paced No significant atrial fibrillation Echo report reviewed dated December 2023: Interpretation Summary The left ventricular cavity size is normal. The LV wall thickness is mildly increased (concentric). The septal motion is abnormal consistent with right ventricular pacemaker with marked dyssynergy of both the anterior and inferior septum. The qualitative LV ejection fraction is 50-54% (normal). The left atrium is mildly enlarged (35-41 ml/m^2). There is aortic valve sclerosis without stenosis. Mild mitral regurgitation is present. Moderate tricuspid regurgitation is present. There is no evidence of pulmonary hypertension. Medications Administered Current Inpatient Medications Acetaminophen (Acetaminophen 325 Mg Tab) 650 mg PO Q4H PRN PRN Reason: Pain or Fever Stop: 05/15/25 09:39 Apixaban (Apixaban 5 Mg Tablet) 5 mg PO BID CELE Stop: 05/15/25 09:39 Last Admin: 04/15/25 11:07 Dose: 5 mg Atorvastatin Calcium (Atorvastatin 40 Mg Tab) 80 mg PO HS CELE Stop: 05/15/25 20:59 Clopidogrel Bisulfate (Clopidogrel Bisulfate 75 Mg Tab) 75 mg PO DAILY CELE Stop: 05/15/25 09:39 Last Admin: 04/15/25 11:06 Dose: 75 mg Docusate Sodium (Docusate Sodium 100 Mg Cap) 100 mg PO BID PRN PRN Reason: Constipation Stop: 05/15/25 09:39 Famotidine (Famotidine 40 Mg Tablet) 40 mg PO HS [facility] Stop: 05/15/25 20:59 Hydrochlorothiazide (Hydrochlorothiazide 25 Mg Tab) 12.5 mg PO DAILY CELE Stop: 05/15/25 09:39 Last Admin: 04/15/25 11:07 Dose: 12.5 mg Isosorbide Mononitrate (Isosorbide Gilliam Extended Rel 30 Mg Tabcr) 30 mg PO DAILY CELE Stop: 05/15/25 09:39 Last Admin: 04/15/25 11:07 Dose: 30 mg Levothyroxine Sodium (Levothyroxine Sodium 50 Mcg Tablet) 50 mcg PO DAILYBB [facility] Stop: 05/15/25 09:44 Last Admin: 04/15/25 11:07 Dose: 50 mcg Metoprolol Tartrate (Metoprolol Tartrate 25 Mg Tab) 12.5 mg PO DAILY CELE Stop: 05/15/25 09:39 Last Admin: 04/15/25 11:07 Dose: 12.5 mg Nitroglycerin (Nitroglycerin Sl 0.4 Mg/Tab Tab) 0.4 mg SL Q5M PRN PRN Reason: Chest Pain Stop: 05/15/25 09:39 Ondansetron HCl (Ondansetron Inj 2 Mg/Ml 2 Ml Vial) 4 mg IV Q6H PRN PRN Reason: Nausea And Vomiting Stop: 05/15/25 09:39 Pantoprazole Sodium (Pantoprazole 40 Mg Tab) 40 mg PO DAILY [facility] Stop: 05/15/25 09:39 Last Admin: 04/15/25 11:07 Dose: 40 mg Polyethylene Glycol (Polyethylene (Miralax) 17 Gm Pack) 17 gm PO DAILY PRN PRN Reason: Constipation Stop: 05/15/25 09:39 PG Care Time/CCT Total # of Minutes Spent Total Time Spent with Patient: Total time spent is greater than 50% in coordination of care (as documented) at patient's floor/unit and/or counseling patient: 60 minutes Coding Level of Care Code 92798 INT INP/OBS CARE 3/75MIN Diagnoses Hypertension I10 Chest heaviness R07.89 Acute heart failure with preserved ejection fraction I50.31 Coronary artery disease involving [place] coronary artery of [place] heart with other form of angina pectoris I25.118 Associated angina: with other forms of angina Coronary Disease-Associated Artery/Lesion type: [place] artery [place] vs. transplanted heart: [place] heart Biventricular cardiac pacemaker in situ Z95.0 (4) CAD (coronary artery disease) Associated angina: with other forms of angina Coronary Disease-Associated Artery/Lesion type: [place] artery [place] vs. transplanted heart: [place] heart Qualified Code(s): I25.118 - Atherosclerotic heart disease of [place] coronary artery with other forms of angina pectoris
[2025-04-15] MEDS ORDERED: FUROSEMIDE 40 MG/4 ML VIAL IV ONE (14:08)
[2025-04-15] MEDS ORDERED: POTASSIUM CHLORIDE CRTAB 20 MEQ TABCR PO STA (14:08)
[2025-04-15] MEDS ORDERED: NITROGLYCERIN 2% OINTMENT 30GM TUBE EXT SCH (14:15)
[2025-04-15] MEDS: POTASSIUM CHLORIDE CRTAB 20 MEQ TABCR PO ONE (16:12)
[2025-04-15] MEDS: FUROSEMIDE 40 MG/4 ML VIAL IV ONE (16:12)
[2025-04-15] MEDS: NITROGLYCERIN 2% OINTMENT 30GM TUBE EXT SCH (17:52)
--- NOTE | 2025-04-15 17:54 | Communication Note ---
Date of Service: April 15, 2025 Patient seen and examined but H&P from the same day therefore not billing for this encounter. No further chest pain. No shortness of breath. Troponin m inimally increased therefore to decide on next steps consulted cardiology as known CAD. Cardiology treating more for HFpEF although notable pulmonary hypertension noted. No changes to medications made other than what was changed by cardiology earlier today.
[2025-04-15] MEDS: METOPROLOL SUCC 25MG EXT REL TAB PO SCH (20:15)
[2025-04-15] MEDS ORDERED: METOPROLOL SUCC 25MG EXT REL TAB PO SCH (21:00)
[2025-04-16 03:30] VITALS: RESP 18
[2025-04-16 06:25] LABS: Hematocrit (blood only) 33.5 % (37.0-47.0); Hemoglobin 11.8 g/dl (12.0-16.0); Mean Corpuscular Hemoglobin 31.6 pg (25.0-34.0); Mean Corpuscular Volume 89.8 fL (80.0-100.0); Platelet Count 253 K/uL (130-400); RDW Standard Deviation 43.2 fL (36.4-46.3); Red Blood Count 3.73 M/uL (4.20-5.40); White Blood Count 5.70 K/ul (4.8-10.8)
[2025-04-16 07:00] LABS: Anion Gap 7.0 (3-11); Blood Urea Nitrogen 27.0 mg/dl (6-23); Calcium 9.1 mg/dl (8.6-10.3); Carbon Dioxide 29.0 mmol/L (21-32); Chloride 101.0 mmol/L (98-107); Creatinine Clr Calc Pharmacy 29.3 ml/min; Glucose 106.0 mg/dl (70-99(Fasting)); Potassium 4.2 mmol/L (3.5-5.1); Sodium 137.0 mmol/L (136-145)
--- NOTE | 2025-04-16 09:18 | Cardiology Progress Note ---
Date of Service April 16, 2025 Assessment & Plan (1) Hypertension: (2) Chest heaviness: (3) Acute heart failure with preserved ejection fraction: (4) CAD (coronary artery disease): (5) Biventricular cardiac pacemaker in situ: Plan Patient is an 89 year old female admitted with episode of subscapular back pain/chest heaviness awakening her from sleep. Long history of underlying ischemic heart disease, with multiple prior interventions, CABG in 2012. Details of interventions unknown. Most recent intervention per patient was in 2013. She reports her symptoms last night were similar to prior [place] in 2013. Symptoms improved with Nitro on route to the ER. EKG with chronic AV dual pacing. No acute changes. Chest xray with mild vascular congestion. Echo with preserved LVEF, elevated pulm pressures and moderate MR. Higher pressures noted when compared with 2023 study. HS troponin unremarkable x2, 3rd set at 17. Repeat pending. Hypertensive on arrival and during other recent visits. Plan 04/16/2025: -Patient is resting comfortably in bed without acute concerns. Remains chest pain free and denies any shortness of breath -Euvolemic on exam. reports good output. -PLan is to discontinue Nitro-bid topical in lieu of restarting Imdur at 60mg PO QD -Continue Toprol xl, but increase to 25mg PO QD -Start Furosemide 20mg PO 3x per week (MWF), first dose tomorrow -Continue Eliquis due to history of P. A-fib -Continue Statin therapy -Continue Plavix due to history of multiple coronary interventions -Will hold off on adding low dose Krunal-I/ARB until re-evaluated in the office to prevention hypotension. Will confirm with Dr. Gillespie -Patient is currently scheduled to see Cardiology OP on 05/12/2025, please keep appt as scheduled. -Patient will need an OP BMP in one week, order placed in [facility] -Patient may be discharged from a cardiac standpoint when ok with primary team with instructions as follows. Case has been discussed with Dr. Gillespie. Further recommendations regarding plan of care as per his assessment. I spent a total of 30 minutes on the date of service in preparation, delivery, documentation of the care provided to the patient excluding any time spent in the performance of separately billed services. CHACORTA Haley [facility] Admission and Anticipated Discharge Date Admission Date: April 15, 2025 Supervising Physician Co-Signing Physician Notes I have personally performed a history and physical examination on the patient. I have reviewed the advance practitioner's documentation, and I agree with, and take responsibility for the plan of care. 89-year-old female with complex cardiovascular history noted above presents with acute episode of back and chest discomfort waking from sleep. Diuretic reduced in November with elevated blood pressures noted over the past 3 months. X-ray evidence of vascular congestion and significantly elevated blood pressure on admission. ECG nondiagnostic due to underlying ventricular pacing. Troponins minimally elevated. Echocardiogram demonstrating preserved LV function with evidence of pulmonary hypertension and moderate mitral regurgitation. Patient treated with diuretic therapy and afterload reduction overnight. Feeling much better today. No recurrent chest discomfort. Troponins minimally elevated, however, flat. No new regional wall motion abnormality on echocardiogram although pulmonary pressures are elevated. Recommendations: Transition topical nitrates to isosorbide monohydrate. Previous dose 30 mg daily. Recommend titration to 60 mg daily. Increase Toprol-XL to 25 mg daily. Consider addition of KRUNAL inhibitor/ARB as outpatient. Add low-dose diuretic therapy, furosemide 20 mg on Sunday, Sunday, and Sunday only. Repeat basic metabolic panel in 1 week as outpatient. Continue Eliquis and Plavix as ordered. Andrea Gillespie DO, [facility] I spent a total of 30 minutes on the date of service in preparation, delivery, and documentation of the care provided to this patient, excluding any time spent in the performance of separately billed services. Subjective 04/16/2025: Patient seen and examined in follow up today. Feeling well from a cardiac perspective. Offers no acute concerns. Blood pressure well controlled. Labs, vitals, diagnostics, telemetry and documentation reviewed. Telemetry reviewed showing Paced underlying sinus. Rates 60-80's. No acute events overnight. Review of Systems Review of Systems: All systems reviewed & are unremarkable except as noted in HPI & below Physical Exam Constitutional: well developed and well nourished; not ill appearing Neck: normal visual inspection and trachea midline Respiratory: normal respiratory effort, lungs clear to auscultation normal respiratory effort; no respiratory distress and no cough Auscultation: no crackles, no rales, no rhonchi and no wheezes Cardiovascular: Rate/Rhythm: regular rate and regular rhythm Heart Sounds: normal S1 and normal S2 Vessels: dorsalis pedis pulses present; no JVD Extremities: no edema Skin: no rashes, warm and dry Psychiatric: A+Ox3, euthymic affect Results & Data Vital Signs (Past 12 Hours) Vital Signs Temp Pulse Pulse Resp BP Pulse Ox O2 Del Method 04/16/25 07:33 36.6 C 66 18 125/75 96 Room Air 04/16/25 07:00 64 04/16/25 03:29 36.5 C 60 18 101/62 95 Room Air 04/15/25 23:54 36.7 C 85 20 114/74 96 Room Air 04/15/25 21:45 74 Laboratory Results Cardiac Enzymes 04/15/25 04/15/25 04/15/25 Range/Units 11:31 18:59 22:44 AST 24 (13-39) U/L Troponin I High Sens 17.8 H D 14.8 H 13.2 (0-14) pg/ml CBC 04/16/25 Range/Units 05:28 WBC 5.70 (4.8-10.8) K/ul RBC 3.73 L (4.20-5.40) M/uL Hgb 11.8 L (12.0-16.0) g/dl Hct 33.5 L (37.0-47.0) % Plt Count 253 (130-400) K/uL Comprehensive Metabolic Panel 04/15/25 04/16/25 Range/Units 11:31 05:28 Sodium 137 (136-145) mmol/L Potassium 4.2 D (3.5-5.1) mmol/L Chloride 101 (98-107) mmol/L Carbon Dioxide 29 (21-32) mmol/L BUN 27 H D (6-23) mg/dl Creatinine 1.07 D (0.6-1.2) mg/dl Glucose 106 H (70-99(Fasting)) mg/dl Calcium 9.1 (8.6-10.3) mg/dl Direct Bilirubin 0.1 (0-0.2) mg/dl AST 24 (13-39) U/L ALT 20 (7-52) U/L Alkaline Phosphatase 60 (34-104) U/L Total Protein 6.2 D (6.0-8.3) gm/dl Albumin 3.7 (3.4-5.0) gm/dl Intake and Output 04/15/25 04/16/25 04/16/25 22:59 06:59 14:59 Intake Total 810 / 1130 200 / 1130 Balance 810 / 1130 200 / 1130 Intake: Oral 810 / 1130 200 / 1130 Other: Weight 59.8 kg Weight Measurement Method Standing Scale PG Care Time/CCT Total # of Minutes Spent Total Time Spent with Patient: Total time spent is greater than 50% in coordination of care (as documented) at patient's floor/unit and/or counseling patient: Coding [place] [address] SUB INP/OBS CARE 3/50MIN Patient Type Established Diagnoses Hypertension I10 Chest heaviness R07.89 Acute heart failure with preserved ejection fraction I50.31 Coronary artery disease involving [place] coronary artery of [place] heart with other form of angina pectoris I25.118 Associated angina: with other forms of angina Coronary Disease-Associated Artery/Lesion type: [place] artery [place] vs. transplanted heart: [place] heart Biventricular cardiac pacemaker in situ Z95.0 Time Spent (min) 35 (4) CAD (coronary artery disease) Associated angina: with other forms of angina Coronary Disease-Associated Artery/Lesion type: [place] artery [place] vs. transplanted heart: [place] heart Qualified Code(s): I25.118 - Atherosclerotic heart disease of [place] coronary artery with other forms of angina pectoris
[2025-04-16 12:33] VITALS: BP 105/66; TEMP 98.1; O2SAT 98
[2025-04-16] MEDS: ISOSORBIDE MONO EXTENDED REL 60 MG TABCR PO SCH (13:43)
[2025-04-16 14:38] VITALS: PULSE 66
--- NOTE | 2025-04-16 15:09 | Discharge Summary ---
Discharge Summary Date of Service April 16, 2025 Principal Dx & Hospital Course #1 = Principal Diagnosis (1) Chest pain: (2) CAD (coronary artery disease): (3) Hypertension: (4) GERD (gastroesophageal reflux disease): Plan Irma Marinelli is an 89 year old were admitted to [facility] from April 15 - 2024 due to chest pain. Troponins were minimally elevated and this is not consisted with a heart attack. You were seen by cardiology and diagnosed with acute heart failure with preserved ejection fraction. Recommended increasing your ISMN to 60mg PO daily and switching your metoprolol tartrate to succinate 25mg PO daily. Started Lasix instead of HCTZ. Please follow up with cardiology for ongoing adjustments with repeat labs (BMP) in 1 week. Admission HPI Per Admitting Provider Irma Marinelli is a pleasant 89yo female with history of CAD s/p CABG x 3V with subsequent stenting, s/p AICD placement presenting with chest pain that woke her from sleep. Patient went to bed last night around 00:30. She had no complaints during the day. at 23:30 she woke with a "nagging pain" between her shoulder blades. She described the pain as "nagging and aching" with radiation down her left arm with some tingling. She initially took 2 TUMS and tried to go back to sleep but the pain persisted so she took a Nitroglycerine. She got some relief of the pain but then it returned so she took a second Nitroglycerine. Again, she had some temporary relief of the pain but then it returned. At 02:30 she had ongoing pain and felt generally weak so she woke her and they called EMS. supervisor administered ASA 324mg PO and two additional doses of Nitroglycerine. Patient with no further chest pain at present. Patient with history of CAD. She had an MD in 2005. She had CABG x 3V performed on 07/21/2013 in [place]. In January 2014 she developed pain similar to tonight - aching between her shoulder blades. She ignored the pain for a while then finally came in to the hospital on 2013 and was found to have an MD. She reports being taken to the manager laboratory at that point and found that her vascular grafting had failed and atrophied. She had two stents placed. She has been doing fairly well since then and denies exertional symptoms or chest pain other than tonight. In the ER she is afebrile, HD stable, NAD, no chest pain at present Discharge Plan Discharge Items Patient Disposition: Home - Self-Care Reason For Visit: CHEST PAIN Discharge Diagnosis: Acute heart failure with preserved ejection fraction Condition on Discharge: Good Activity: Resume your previous activity Non-emergency contact: Reservation Sales Agent Call non-emergency contact if: you have any medication questions and your symptoms worsen Follow-up/Referrals: Lorrie Devi DO [Primary Care Provider] - Diet: Heart Healthy Addtl Attending Provider Instructions: You were admitted to [facility] from April 15 - 2024 due to chest pain. Troponins were minimally elevated and this is not consisted with a heart attack. You were seen by cardiology and diagnosed with acute heart failure with preserved ejection fraction. Recommended increasing your ISMN to 60mg PO daily and switching your metoprolol tartrate to succinate 25mg PO daily. Started Lasix instead of HCTZ. Please follow up with cardiology for ongoing adjustments with repeat labs (BMP) in 1 week. Pending Studies at Discharge: No Stand-Alone Forms: My [facility], Smoking Cessation Medications and DC Order Prescriptions: New isosorbide mononitrate 60 mg Tablet Extended Release 24 Hr 60 mg PO QAM Qty: 30 0RF metoprolol succinate 25 mg tablet extended release 24 hr 25 mg PO DAILY Qty: 30 0RF furosemide [Lasix] 20 mg tablet 20 mg PO DAILY Qty: 30 0RF Continued levothyroxine 50 mcg tablet 50 mcg PO DAILY Patient Comments: Take 1 tablet daily atorvastatin 80 mg tablet 80 mg PO DAILY nitroglycerin 0.4 mg tablet, sublingual See Rx Instructions SL .COMPLEX PRN (Reason: Chest Pain) Rx Instructions: Place 1 tablet under the tongue every 5 minutes for up to 3 doses as needed for chest pain. Call 911 if pain persists pantoprazole 40 mg tablet,delayed release (DR/EC) 40 mg PO DAILY clopidogrel [Plavix] 75 mg tablet 75 mg PO DAILY Eliquis 5 mg tablet 5 mg PO BID famotidine 40 mg tablet 40 mg PO DAILY clobetasol 0.05 % Cream 1 applic TOPICAL [id number] Rx Instructions: Sun/Thurs to vaginal area estradiol [Estrace] 0.01 % (0.1 mg/gram) cream 1 g PV WK Rx Instructions: Sun/Thurs Discontinued isosorbide mononitrate 30 mg tablet extended release 24 hr 30 mg PO DAILY hydrochlorothiazide 12.5 mg capsule 12.5 mg PO DAILY metoprolol tartrate 25 mg tablet 12.5 mg PO DAILY Discharge Orders: Discharge Order (Routine); Ordered 04/16/25 Ordered By: Jackson Royal Admission Data Admit Date/Time: 04/15/25 06:21 Attending Provider: Jackson Royal Admit Provider: Megan Martínez Primary Care Provider: Lorrie Devi Other Providers: Andrea Gillespie; Megan Martínez Other Interventions: Discharge Summary Assessment (RN) Last Done: 04/16/25 14:36 Hospital Stay Data Consultations 04/15/25 06:21 ED Decision to Admit Stat 04/15/25 12:56 Consult Cardiology Routine Pending Results Patient Have Any Pending Studies at Discharge: No Discharge Instructions Given to Patient (Per Discharging Provider) You were admitted to [facility] from April 15 - 2024 due to chest pain. Troponins were minimally elevated and this is not consisted with a heart attack. You were seen by cardiology and diagnosed with acute heart failure with preserved ejection fraction. Recommended increasing your ISMN to 60mg PO daily and switching your metoprolol tartrate to succinate 25mg PO daily. Started Lasix instead of HCTZ. Please follow up with cardiology for ongoing adjustments with repeat labs (BMP) in 1 week. Coding Diagnoses Chest pain R07.9 Coronary artery disease involving wainwright coronary artery of wainwright heart with other form of angina pectoris I25.118 Associated angina: with other forms of angina Coronary Disease-Associated Artery/Lesion type: [place]wright artery [place] vs. transplanted heart: wainwright heart Hypertension I10 GERD (gastroesophageal reflux disease) K21.9
--- NOTE | 2025-04-18 07:51 | Electrocardiogram Report ---
Test Reason : Blood Pressure : */* mmHG Vent. Rate : 76 BPM Atrial Rate : 76 BPM P-R Int : 124 ms QRS Dur : 138 ms QT Int : 418 ms P-R-T Axes : 90 36 22 degrees QTcB Int : 470 ms Atrial-sensed ventricular-paced rhythm with frequent AV dual-paced complexes Abnormal ECG When compared with ECG of 18-Feb-2025 20:14, Vent. rate has increased by 16 bpm Confirmed by Eron Grant ([id number]) on 04/18/2025 7:51:11 AM Referred By: REFERRED SELF Confirmed By: Eron Grant
--- NOTE | 2025-04-18 07:51 | Electrocardiogram Report ---
Test Reason : Blood Pressure : */* mmHG Vent. Rate : 71 BPM Atrial Rate : 71 BPM P-R Int : 132 ms QRS Dur : 138 ms QT Int : 414 ms P-R-T Axes : 99 13 39 degrees QTcB Int : 449 ms Atrial-sensed ventricular-paced rhythm with occasional AV dual-paced complexes Abnormal ECG When compared with ECG of 15-Apr-2025 03:07, (unconfirmed) Vent. rate has decreased by 5 bpm Confirmed by Eron Grant ([id number]) on 04/18/2025 7:50:53 AM Referred By: REFERRED SELF Confirmed By: Eron Grant
== END 2025-04-16 15:01 | disposition home or self-care (01) ==
LOC: SUATTDRO → ED 03:00 → 2W 03:00 → SUATTDRO 06:21 → 2W 08:59